=== PATIENT | female | born 1965 | race Hispanic/Latino ===

== ENCOUNTER 2018-01-23 20:30 | Outpatient (CLI) | payer MEDICARE, MEDICAID | END 2018-01-23 20:31 | disposition home or self-care (01) | LOC: SLEEPLAB 20:30 | PROVIDERS: ATTEND Internal Medicine Critical Care Medicine | DX: G47.33 Obstructive sleep apnea (adult) (pediatric) (principal); R53.83 Other fatigue | CPT/HCPCS: 95810 ==

== ENCOUNTER 2018-03-18 19:30 | Outpatient (CLI) | payer MEDICARE, MEDICAID | END 2018-03-18 19:31 | disposition home or self-care (01) | LOC: SLEEPLAB 19:30 | PROVIDERS: ATTEND Internal Medicine Critical Care Medicine | DX: G47.33 Obstructive sleep apnea (adult) (pediatric) (principal); G47.52 REM sleep behavior disorder | CPT/HCPCS: 95811 ==

== ENCOUNTER 2018-11-13 11:02 | Outpatient (CLI) | payer MEDICARE, MEDICAID | END 2018-11-13 11:03 | disposition home or self-care (01) | LOC: BICMAMMO 11:02 | PROVIDERS: ATTEND Family Medicine | DX: Z12.31 Encounter for screening mammogram for malignant neoplasm of breast (principal) | CPT/HCPCS: 77063; 77067 ==

== ENCOUNTER 2019-03-19 22:40 | Emergency (ER) | payer MEDICARE, MEDICAID ==
[2019-03-19 23:42] LABS: Bilirubin Negative (Negative); Blood, Urine Trace (Negative); Glucose, Urine (Dipstick) Negative (Negative); Leukocyte Small (Negative); Nitrite Negative (Negative); Protein, Urine (Dipstick) Negative (Neg-Trace); Specific Gravity, Urine 1.032 (1.002-1.036); Urobilinogen 0.2 mg/dL (0.2-1.0); pH, Urine 5.5 (5.0-9.0)
[2019-03-19 23:43] LABS: Clarity Hazy (Clear)
[2019-03-19 23:44] LABS: Bacteria/HPF Rare-Few HPF (None Seen); Pathc Cast-AUWi Flag 0.54 (0-2.49)
[2019-03-19 23:56] LABS: Hyaline Casts/LPF NONE SEEN LPF (0-3 Hyaline); Yeast-All Forms 1+ HPF (None Seen)
[2019-03-20 00:08] LABS: Pregnancy Test - Urine (BHCG) Negative (Negative)
[2019-03-20] MEDS ORDERED: cefTRIAXone\\ROCEPHIN 2 GM VIAL ONE (00:08)
[2019-03-20 00:09] LABS: Pregu Control Background? CLEAR/WHITE (CLR/WHITE); Pregu Control Bar Appear? YES (CONTROL BAR); Specific Gravity 1.032 (1.002-1.036)
[2019-03-20] MEDS ORDERED: Morphine 4 MG/ML VIAL ONE (00:34)
[2019-03-20 00:42] LABS: #Eosinphils 0.1 thou/uL (0.0-0.7); #Lymphocytes 2.1 thou/uL (1.20-3.40); #Monocytes 0.5 thou/uL (0.11-0.59); #Neutrophils 5.1 thou/uL (1.40-6.50); %Basophils 0.1 % (0.0-1.0); %Eosinophils 1.4 % (0.0-10.0); %Lymphocytes 27.4 % (21.0-51.0); %Monocytes 5.8 % (0.0-10.0); %Neutrophils 65.4 % (42.0-75.0); Hemoglobin 11.4 g/dL (12.0-16.0); Mean Corpuscular HGB CONC 32.7 g/dL (32.0-36.0); Mean Corpuscular Hemoglobin 28.6 pg (27.0-31.0); Mean Corpuscular Volume 87.4 fL (78.0-98.0); Mean Platelet Volume 6.4 fL (7.4-10.4); Platelet Count 216 thou/uL (130-400); RBC Distribution Width 13.8 % (11.5-14.5); Red Blood Cell (RBC) Count 3.98 mill/uL (4.20-5.40); White Blood Cell (WBC) Count 7.8 thou/uL (4.8-10.8)
[2019-03-20 01:02] LABS: ALT (SGPT) 13 U/L (8-55); AST (SGOT) 13 U/L (5-34); Albumin 3.5 g/dL (3.5-5.0); Alkaline Phosphatase 68 U/L (40-150); Anion Gap 12 mmol/L (10-20); BUN (Urea Nitrogen) 25 mg/dL (9.8-20.1); Bilirubin, Total 0.3 mg/dL (0.2-1.2); Calc. Creatinine Clearance 0 mL/min (70-130); Calcium 8.5 mg/dL (7.8-10.44); Carbon Dioxide 23 mmol/L (22-29); Chloride 107 mmol/L (98-107); Estimated GFR-MDRD Greater than 90; Globulin 2.2 g/dL (2.4-3.5); Glucose 103 mg/dL (70-105); Lipase 29 U/L (8-78); Potassium 3.9 mmol/L (3.5-5.1); Protein, Total 5.7 g/dL (6.0-8.3); Sodium 138 mmol/L (136-145)
== END 2019-03-20 01:25 | disposition home or self-care (01) ==
LOC: ERS 22:40
DX: N39.0 Urinary tract infection, site not specified (principal); F32.9 Major depressive disorder, single episode, unspecified; F41.9 Anxiety disorder, unspecified; M79.7 Fibromyalgia; G25.81 Restless legs syndrome; G47.30 Sleep apnea, unspecified; Z79.82 Long term (current) use of aspirin; Z79.899 Other long term (current) drug therapy
CPT/HCPCS: 36415; 80053; 81003; 81015; 81025; 83690; 85025; 96361; 96365; 96375; J0696; J2270

== ENCOUNTER 2019-05-26 20:33 | Emergency (ER) | payer MEDICARE, MEDICAID ==
[2019-05-26 20:55] LABS: #Basophils 0.1 thou/uL (0.0-0.2); #Eosinphils 0.1 thou/uL (0.0-0.7); #Lymphocytes 2.6 thou/uL (1.20-3.40); #Monocytes 0.5 thou/uL (0.11-0.59); %Basophils 0.6 % (0.0-1.0); %Eosinophils 0.6 % (0.0-10.0); %Lymphocytes 31.7 % (21.0-51.0); Hemoglobin 13.1 g/dL (12.0-16.0); Mean Corpuscular HGB CONC 32.7 g/dL (32.0-36.0); Mean Corpuscular Volume 85.9 fL (78.0-98.0); Platelet Count 327 thou/uL (130-400); RBC Distribution Width 13.2 % (11.5-14.5); Red Blood Cell (RBC) Count 4.69 mill/uL (4.20-5.40); White Blood Cell (WBC) Count 8.1 thou/uL (4.8-10.8)
[2019-05-26 21:11] LABS: ALT (SGPT) 15 U/L (8-55); AST (SGOT) 18 U/L (5-34); Albumin 4.3 g/dL (3.5-5.0); Alkaline Phosphatase 118 U/L (40-150); Anion Gap 13 mmol/L (10-20); BUN (Urea Nitrogen) 21 mg/dL (9.8-20.1); Bilirubin, Total 0.2 mg/dL (0.2-1.2); Calc. Creatinine Clearance 0 mL/min (70-130); Calcium 9.7 mg/dL (7.8-10.44); Carbon Dioxide 29 mmol/L (22-29); Chloride 101 mmol/L (98-107); Estimated GFR-MDRD 72; Globulin 3.4 g/dL (2.4-3.5); Glucose 100 mg/dL (70-105); Potassium 3.9 mmol/L (3.5-5.1); Protein, Total 7.7 g/dL (6.0-8.3); Sodium 139 mmol/L (136-145)
[2019-05-26] MEDS ORDERED: Metoclopramide HCl 10 MG/2 ML VIAL ONE (21:19)
[2019-05-26] MEDS ORDERED: diphenhydrAMINE 50 MG/ML VIAL ONE (21:19)
--- NOTE | 2019-05-26 22:16 | CT ---
CT HEAD WITHOUT CONTRAST: 05/26/2019 HISTORY: New onset of numbness in the left arm with headache and dizziness. COMPARISON: None. TECHNIQUE: Axial CT imaging at 5 mm intervals, from the vertex through the skull base, without contrast. FINDINGS: No intracranial hemorrhage, midline shift, mass effect, or ventricular enlargement. The imaged paran chantell sinuses and mastoid air cells are well aerated with no displaced calvarial fracture seen. IMPRESSION: No acute findings. POS: OFF
[2019-05-26] MEDS ORDERED: Diazepam 5 MG TAB ONE (22:19)
[2019-05-26 23:19] LABS: Carbamazepine-Tegretol 8.8 ug/mL (4.0-12.0)
== END 2019-05-26 23:15 | disposition home or self-care (01) ==
LOC: ERS 20:33
DX: R42 Dizziness and giddiness (principal); R51 Headache; Z86.73 Personal history of transient ischemic attack (TIA), and cerebral infarction without residual deficits; G47.30 Sleep apnea, unspecified; F41.9 Anxiety disorder, unspecified; F32.9 Major depressive disorder, single episode, unspecified; Z79.899 Other long term (current) drug therapy; Z79.82 Long term (current) use of aspirin
CPT/HCPCS: 36415; 70450; 80053; 80156; 84484; 85025; 93005; 96365; 96375; J1200; J2765

== ENCOUNTER 2019-06-01 09:29 | Outpatient (CLI) | payer MEDICARE, MEDICAID ==
--- NOTE | 2019-06-01 12:41 | CT ---
CT ABDOMEN AND PELVIS WITH CONTRAST: COMPARISON: 05/11/2012. HISTORY: Bloating and constipation for years. TECHNIQUE: Multiple contiguous axial images were obtained in a CT of the abdomen and pelvis with contrast. P.o. contrast was administered. Coronal reformats were performed. FINDINGS: The liver, gallbladder, kidneys, adrenal glands, spleen, and pancreas are unremarkable. No free air, free fluid, or stranding changes are seen in the abdomen or pelvis. The patient is status post hysterectomy. The large and small bowel are unremarkable. The appendix i s unremarkable. Atherosclerotic calcifications are seen in the aorta. No abdominal pelvic lymphaden opathy are seen. Degenerative changes are seen in the spine. The visualized inferior thorax and abdominal wall soft t issues are unremarkable. IMPRESSION: No evidence of acute intraabdominal/pelvic abnormality. POS: [facility]
[2019-06-01] MEDS ORDERED: ISOVUE-370 76%-LOCM 1 ML ONE (14:37)
== END 2019-06-01 09:30 | disposition home or self-care (01) ==
LOC: BICCT 09:29
PROVIDERS: ATTEND Physician Assistant Medical
DX: K59.00 Constipation, unspecified (principal); R14.0 Abdominal distension (gaseous); R14.2 Eructation
CPT/HCPCS: 74177

== ENCOUNTER 2019-11-24 09:05 | Outpatient (CLI) | payer MEDICARE, MEDICAID ==
--- NOTE | 2019-11-24 12:11 | MRI ---
MRI LUMBAR SPINE WITHOUT CONTRAST: INDICATION: Lumbar radiculopathy. Low back pain. COMPARISON: Comparison is made to prior MRI of the lumbar spine dated 12/08/2014. FINDINGS: The lumbar vertebrae maintain normal height and alignment. Degenerative disk changes are seen at all levels with loss of disk space throughout the lumbar spine. Degenerative end plate changes are seen throughout. The lumbar spine degenerative changes have progressed since 2015. Loss of disk space i s more pronounced today at L2-3 and L4-5 when compared to prior study. Degenerative disk changes at L5-S1 have also progressed since the prior study. Findings at each level are noted. L1-2: Mild disk bulge flattens the thecal sac. No central canal or foraminal stenosis. No signific ant change from prior exam. L2-3: Broad-based disk bulge flattens the thecal sac. Facet hypertrophy. There is posterior epidur al fat. These changes result in mild central canal stenosis. A disk extrusion at this level on the prior exam has regressed in the interim. At L3-4, mild diffuse disk bulge flattens the thecal sac. Moderate facet hypertrophy with posterior epidural fat. Mild to moderate central canal stenosis similar to the prior exam. At L4-5, posterior disk bulge flattens the thecal sac. Prominent facet and ligamentous hypertrophy w ith posterior epidural fat. These changes result in moderate to severe central canal stenosis. Left foraminal stenosis secondary to asymmetric bulge to the left and associated facet hypertrophy. At L5-S1, mild disk bulge. Facet hypertrophy. Mild central canal stenosis. Bilateral foraminal richard nosis at this level secondary to broad-based bulge extending into the foramina and the prominent face t hypertrophy. IMPRESSION: Central canal stenosis at several levels as detailed above. Findings are most severe at L4-5. POS: [facility]
== END 2019-11-24 09:06 | disposition home or self-care (01) ==
LOC: BICMRI 09:05
PROVIDERS: ATTEND Anesthesiology
DX: M54.16 Radiculopathy, lumbar region (principal); M54.5 Low back pain; M48.061 Spinal stenosis, lumbar region without neurogenic claudication; M48.07 Spinal stenosis, lumbosacral region
CPT/HCPCS: 72148

== ENCOUNTER → 2019-12-01 | Day surgery (SDC) | payer MEDICARE, MEDICAID ==
--- NOTE | 2019-12-04 19:40 | OP ---
DATE OF PROCEDURE: 12/01/2019 PROCEDURE PERFORMED: High-resolution esophageal motility study. PREOPERATIVE DIAGNOSES: Esophageal dysphagia and hiatal hernia with grade C reflux esophagitis and Rock ulcerations of the mucosa at the diaphragmatic pinch. Please note, the patient underwent esophageal dilation with an 18 mm Savary dilator with no change in the esophagus following the dilation. This is also part of a preoperative workup for possible fundoplication surgery. DESCRIPTION OF PROCEDURE: The manometry probe was placed by Mariella De La Torre registered nurse. The patient had 10 wet swallows evaluated. All 10 wet swallows showed a resting residual lower esophageal sphincter pressure to be around 30 mmHg. The lower esophageal sphincter relaxed completely with each wet swallow. Her esophageal motility showed peristaltic contractions with wave amplitudes up to the 80s and 90s mmHg range. She did have 3 or 4 of the wet swallows that failed; however, the remainder of the wet swallows showed normal peristaltic contractions with appropriate wave amplitudes. All the wet swallows had normal relaxation at the lower esophageal sphincter. IMPRESSION: 1. Overall normal esophageal motility. 2. It is noted that she did have failed swallows with 30% to 40%, however, still within the normal range. Melvin classification did suggest possible ineffective esophageal motility as the computer read 6 of the wet swallows to have failed, however, still she has multiple normal peristaltic contractions with appropriate relaxation for most of the wet swallows on actual review of the data and images. RECOMMENDATIONS: No contraindication to fundoplication is identified by this study; however, the findings of the failed swallows will need to be kept in mind. Job ID: [id number]
== END ==
LOC: ENDO/OP 07:31
PROVIDERS: ATTEND Internal Medicine Gastroenterology
DX: K21.9 Gastro-esophageal reflux disease without esophagitis (principal); K44.9 Diaphragmatic hernia without obstruction or gangrene; K59.00 Constipation, unspecified; F41.9 Anxiety disorder, unspecified; Z79.82 Long term (current) use of aspirin; Z79.899 Other long term (current) drug therapy
CPT/HCPCS: 91010

== ENCOUNTER 2019-12-21 09:53 | Outpatient (CLI) | payer OTHER | END 2019-12-21 09:54 | disposition home or self-care (01) | LOC: DTY/OP 09:53 | PROVIDERS: ATTEND Specialist | DX: Z01.818 Encounter for other preprocedural examination (principal); E66.01 Morbid (severe) obesity due to excess calories | CPT/HCPCS: 97802 ==

== ENCOUNTER 2020-04-25 08:07 | Outpatient (CLI) | payer MEDICARE, MEDICAID, OTHER ==
[2020-04-26 12:19] LABS: SARS-CoV-2 MS2 Positive; SARS-CoV-2 N Gene Negative; SARS-CoV-2 S Gene Negative; SARS-CoV-2 orf1ab Negative
== END 2020-04-25 08:08 | disposition home or self-care (01) ==
LOC: LABBT 08:07
PROVIDERS: ATTEND Specialist
DX: Z01.812 Encounter for preprocedural laboratory examination (principal); Z11.59 Encounter for screening for other viral diseases; K21.9 Gastro-esophageal reflux disease without esophagitis; E66.01 Morbid (severe) obesity due to excess calories
CPT/HCPCS: 87635; U0003

== ENCOUNTER 2020-04-25 12:00 | Inpatient (IN) | payer MEDICARE, MEDICAID ==
[2020-04-22 13:49] VITALS: BMI 41.1
[2020-04-28] MEDS ORDERED: Bupivacaine 0.25% HCL 30 ML VIAL ONE (06:28)
[2020-04-28] MEDS ORDERED: Lidocaine 1% w/Epinephrine 1:100K 20 ML VIAL ONE (06:28)
[2020-04-28] MEDS ORDERED: Acetaminophen 500 MG TAB ONE (06:34)
[2020-04-28] MEDS ORDERED: Ketorolac Tromethamine 30 MG/ML VIAL ONE (06:34)
[2020-04-28] MEDS ORDERED: Heparin 5,000 UNITS/ML VIAL ONE (06:35)
[2020-04-28] MEDS ORDERED: Fentanyl 100 MCG/2 ML VIAL ONE ×3 (07:02→12:15)
[2020-04-28] MEDS ORDERED: Midazolam HCl 2 mg/2 ml Vial ONE (07:02)
[2020-04-28] MEDS ORDERED: Scopolamine 1.5 mg/72 hour Patch ONE (07:17)
[2020-04-28] MEDS ORDERED: Famotidine/PF 20 mg/2ml Vial ONE (07:17)
[2020-04-28] MEDS ORDERED: SUGAMMADEX SODIUM 200 MG/2 ML VIAL ONE (11:09)
[2020-04-28] MEDS ORDERED: Dexamethasone 20 MG/5 ML VIAL ONE (11:54)
[2020-04-28] MEDS ORDERED: Rocuronium Bromide 10 MG/ML (10ML VIAL) ONE (11:54)
[2020-04-28] MEDS ORDERED: Ondansetron PF 4 MG/2 ML Vial ONE ×2 (11:54→12:17)
[2020-04-28] MEDS ORDERED: PROPOFOL 200 MG/20 ML VIAL ONE (11:54)
[2020-04-28] MEDS ORDERED: Glycopyrrolate 0.2 MG/ML 5 ML SYRINGE ONE (11:54)
[2020-04-28] MEDS ORDERED: EPHEDRINE 25 MG/5 ML SYRINGE ONE (11:54)
[2020-04-28] MEDS ORDERED: Dextrose 5% in Water 1,000 ML IV PRN (12:42)
[2020-04-28] MEDS ORDERED: Promethazine HCl 25 MG/ML VIAL IM PRN (12:42)
[2020-04-28] MEDS ORDERED: hydrALAZINE 20 MG/ML VIAL SLOW IVP PRN (12:42)
[2020-04-28] MEDS ORDERED: Morphine 4 MG/ML VIAL SLOW IVP PRN (12:42)
[2020-04-28] MEDS ORDERED: Ondansetron PF 4 MG/2 ML Vial IVP PRN (12:42)
[2020-04-28] MEDS ORDERED: diphenhydrAMINE 50 MG/ML VIAL IVP PRN (12:42)
[2020-04-28] MEDS ORDERED: Dextrose 50% Abboject 50 ML SYRINGE SLOW IVP PRN (12:42)
[2020-04-28] MEDS: Baclofen 10 MG TAB PO SCH ×2 (14:59→19:37)
[2020-04-28] MEDS: D5 1/2 NS w/20 mEq KCL 1,000 ML IV SCH ×2 (15:03→20:10)
[2020-04-28] MEDS: Hydrocodone-Acetamin 15 ML UDCUP PO PRN ×2 (16:56→21:31)
[2020-04-28] MEDS: Ketorolac Tromethamine 30 MG/ML VIAL IVP SCH ×2 (16:56→23:43)
--- NOTE | 2020-04-28 19:42 | OP ---
DATE OF PROCEDURE: 04/28/2020 PREOPERATIVE DIAGNOSES: Morbid obesity and 6 cm hiatal hernia. POSTOPERATIVE DIAGNOSES: Morbid obesity and 6 cm hiatal hernia. PROCEDURES PERFORMED: Laparoscopic Anastacio-en-Y gastric bypass and paraesophageal hiatal hernia repair. SENIOR FUND ACCOUNTANT: Eugenia Staley MD ANESTHESIA: General endotracheal. INDICATIONS: The patient is a 54-year-old female. She has a BMI of between 41 and 42. She had presented with fairly severe gastroesophageal reflux disease. I recommended gastric bypass surgery with hiatal hernia repair to treat both problems. She is taken to the operating room at this time for this purpose. DESCRIPTION OF OPERATION: Informed consent was obtained, the patient was taken to the operating room, where general endotracheal anesthesia was obtained with the patient in supine position. Abdomen was prepped with ChloraPrep and draped in sterile fashion. Local anesthetic was infiltrated using a mixture of 1% lidocaine with epinephrine and 0.25% Marcaine. A 5 mm supraumbilical incision was created and Veress needle passed this incision. Pneumoperitoneum established with carbon dioxide up to pressure of 15 mmHg. A 5 mm trocar port was passed through the same incision. Laparoscopic camera was passed this port. Under direct vision, four additional ports were placed including bilateral subcostal 5 mm ports and a left paramedian 15 mm port and a right paramedian 12 mm port. Attention was first turned inferiorly. There were omental adhesions to the anterior abdominal wall inferiorly and these were lysed in hopes of being able to retract the omentum superiorly. As dissection was carried inferiorly, it was recognized that the omentum was fairly densely adherent down within the pelvis, not only to the pelvic structures, but also to the posterior loops of bowel. I decided that there was excessive adhesions and that the benefit from being able to retract the omentum was not worth the dissection. During the course of mobilization, there were also some small bowel loops that were adherent to the anterior abdominal wall. During the course of dissection, a small serosal defect was created in one of these loops. There was no enterotomy. The serosal defect was repaired with a single interrupted suture of 3-0 silk. Attention was turned to the upper abdomen. I identified the left lateral aspect of the omentum. I was able to begin dissecting this off the transverse colon in a left to right fashion. There were some adhesions between the omentum and the lateral abdominal wall in the left upper abdomen and some of these adhesions were lysed as well. The dissection of the omentum off the transverse colon was continued until I reached the area of the approximately the falciform ligament. The transverse colon was then elevated and the ligament of Treitz was identified. A 50 cm distally, I transected the small bowel with a single firing of the white load of the Santa Claus stapler. The distal segment of small bowel was devascularized for about 5 cm. I then traced the bowel 100 cm distally and at that point, created an anastomosis between the biliary limb of the intestine and the Anastacio limb of the intestine with a single firing of the 60 mm white load stapler. The common enterotomy was closed with two firings of the same stapler. There was more oozing along the staple line, that this typical and this was controlled with electrocautery. The mesenteric defect was closed with two [id number] sutures of 3-0 Vicryl. The patient was then placed into fairly steep reverse Trendelenburg. A Zac's arm attached to the Johan retractor was used to retract the left lobe of the liver. She had no evidence of fatty liver change. Attention was turned to the hiatal hernia. She had an obvious hiatal hernia with a significant amount of stomach present within the mediastinum. I began at the pars flaccida and dissected up to identify the right alex. I then carried the peritoneal dissection anteriorly along the peritoneal portion of the hiatus. I was able to identify the posterior aspect of the esophagus, but could not dissect over to the other alex. Attention was then turned to the patient's left side. I took down the superior aspect of the short gastric vessels in order to be able to visualize and dissect the left alex. The left alex was fully dissected and dissection was also carried up along the esophagus into the mediastinum for about 4 cm. I then was able to dissect the retroesophageal window and the space was controlled with a Gogo drain. After this was placed, I was able to fully dissect both of the crura. The hiatal hernia was repaired with 2 interrupted sutures of 0 Ethibond placed using [place] pledgets. The sutures were secured with a tie knot device. When inspected, the hiatus appeared to be appropriately snug around the esophagus. Bougie was not placed and I felt comfortable with the amount of laxity around the esophagus. Attention was then turned to the gastric pouch construction. The lesser curvature was dissected. About 5 cm distal to the gastroesophageal junction. A single firing of the blue load of the Santa Claus stapler was made in a transverse fashion across the stomach. A gastrotomy was created in the lower segment of the stomach and through this, the anvil of a 25 mm EEA stapler was passed into the upper pouch and brought out just anterior to the staple line using the 5 mm band passer technique. The gastrotomy was then closed with two firings of the blue load of the Santa Claus stapler. The gastric pouch was completed with two vertical firings of the blue load of the gastric pouch up towards the angle of His. I resected the upper portion of the bypassed portion of the stomach as it had been somewhat devascularized by taking down the short gastric vessels. This segment did not appear ischemic, but I felt it was a risk for possible ischemic change. The segment of the stomach was removed and submitted as a pathologic specimen. The spike from the anvil was removed. Attention was turned to the devascularized segment of the Anastacio limb, which was brought up into the upper abdomen. An enterotomy was created and a 25 mm EEA stapler was advanced into this. The spike was advanced through the antimesenteric segment of the small bowel proximal to the mesenteric split. The stapler and the anvil were mated, approximated, and anastomosis was created by firing the stapler. Staple was removed and the donuts were inspected and found to be intact. The enterotomy in the devascularized segment of the small bowel removed with a final firing of the white load of the stapler. The gastrojejunostomy was buttressed with 3 interrupted sutures of 3-0 Vicryl. The nasogastric tube was advanced through the anastomosis and used to test the anastomosis for an air leak while it was under water. There was no evidence of air leak. All of the irrigant was aspirated. The jejunojejunostomy was inspected one final time. There was found to be some persistent oozing along one of the staple lines and this was controlled again with electrocautery with complete cessation of any bleeding. All irrigant was again aspirated. The Johan retractor was removed. All ports and instruments were removed under direct vision. The fascial defect at the 15 mm port site was closed with 0 Vicryl suture using a GraNee needle in a [id number] fashion. Additional local anesthetic was infiltrated in each port site. Skin edges approximated with 4-0 Monocryl subcuticular suture. Dermabond was placed externally. There were no complications. The patient tolerated the procedure well and was taken to recovery room in stable condition. Job ID: [id number]
[2020-04-28] MEDS ORDERED: Enoxaparin Sodium 40 MG/0.4 ML SYRINGE SC SCH (21:00)
[2020-04-29] MEDS: D5 1/2 NS w/20 mEq KCL 1,000 ML IV SCH (02:41)
[2020-04-29] MEDS: Hydrocodone-Acetamin 15 ML UDCUP PO PRN ×2 (04:12→09:13)
[2020-04-29] MEDS: Ketorolac Tromethamine 30 MG/ML VIAL IVP SCH (05:17)
[2020-04-29 05:20] LABS: #Lymphocytes 1.2 thou/uL (1.20-3.40); #Monocytes 0.4 thou/uL (0.11-0.59); #Neutrophils 6.7 thou/uL (1.40-6.50); %Basophils 0.1 % (0.0-1.0); %Eosinophils 0.1 % (0.0-10.0); %Lymphocytes 14.4 % (21.0-51.0); %Monocytes 5.2 % (0.0-10.0); %Neutrophils 80.3 % (42.0-75.0); Hemoglobin 9.4 g/dL (12.0-16.0); Mean Corpuscular HGB CONC 31.7 g/dL (32.0-36.0); Mean Corpuscular Hemoglobin 27.5 pg (27.0-31.0); Mean Corpuscular Volume 86.7 fL (78.0-98.0); Mean Platelet Volume 6.8 fL (7.4-10.4); Platelet Count 285 thou/uL (130-400); Red Blood Cell (RBC) Count 3.43 mill/uL (4.20-5.40); White Blood Cell (WBC) Count 8.4 thou/uL (4.8-10.8)
[2020-04-29 05:41] LABS: Anion Gap 10 mmol/L (10-20); BUN (Urea Nitrogen) 9 mg/dL (9.8-20.1); Calc. Creatinine Clearance 146 mL/min (70-130); Calcium 8.5 mg/dL (7.8-10.44); Carbon Dioxide 26 mmol/L (22-29); Chloride 106 mmol/L (98-107); Estimated GFR-MDRD 85; Glucose 126 mg/dL (70-105); Potassium 4.1 mmol/L (3.5-5.1); Sodium 138 mmol/L (136-145)
[2020-04-29 07:41] VITALS: BP 94/61; TEMP 98.3
[2020-04-29] MEDS ORDERED: Pantoprazole 40 MG VIAL IVP SCH (09:00)
[2020-04-29] MEDS ORDERED: DULoxetine 30 MG CAP PO SCH (09:00)
[2020-04-29] MEDS: Baclofen 10 MG TAB PO SCH (09:15)
== END 2020-04-29 12:45 | disposition home or self-care (01) | DRG 621 ==
LOC: SURG A 04-28 06:15
PROVIDERS: ADMIT Specialist; ATTEND Specialist
PROC: 0D164ZA Bypass Stomach to Jejunum, Percutaneous Endoscopic Approach (ICD-10-PCS; principal; 2020-04-28)
PROC: 0BQT4ZZ Repair Diaphragm, Percutaneous Endoscopic Approach (ICD-10-PCS; 2020-04-28)
DX: E66.01 Morbid (severe) obesity due to excess calories (principal); K21.9 Gastro-esophageal reflux disease without esophagitis; G47.30 Sleep apnea, unspecified; F41.9 Anxiety disorder, unspecified; Z90.710 Acquired absence of both cervix and uterus; Z68.41 Body mass index [BMI] 40.0-44.9, adult; K44.9 Diaphragmatic hernia without obstruction or gangrene
CPT/HCPCS: 36415; 80048; 85025; 87635; C9113; J0694; J1100; J1644; J1650; J1885; J2250; J2270; J2405; J2704; J3010; J3480; S0020; S0028; U0003

== ENCOUNTER 2020-05-10 00:16 | Emergency (ER) | payer MEDICARE, MEDICAID ==
[2020-05-10 00:43] LABS: #Eosinphils 0.1 thou/uL (0.0-0.7); #Lymphocytes 1.8 thou/uL (1.20-3.40); #Monocytes 0.3 thou/uL (0.11-0.59); #Neutrophils 2.3 thou/uL (1.40-6.50); %Basophils 0.9 % (0.0-1.0); %Eosinophils 2.7 % (0.0-10.0); %Lymphocytes 39.3 % (21.0-51.0); %Monocytes 6.3 % (0.0-10.0); %Neutrophils 50.8 % (42.0-75.0); Hemoglobin 9.4 g/dL (12.0-16.0); Mean Corpuscular HGB CONC 31.8 g/dL (32.0-36.0); Mean Corpuscular Hemoglobin 26.9 pg (27.0-31.0); Mean Corpuscular Volume 84.6 fL (78.0-98.0); Mean Platelet Volume 6.4 fL (7.4-10.4); Platelet Count 371 thou/uL (130-400); RBC Distribution Width 14.4 % (11.5-14.5); Red Blood Cell (RBC) Count 3.49 mill/uL (4.20-5.40); White Blood Cell (WBC) Count 4.6 thou/uL (4.8-10.8)
[2020-05-10 01:04] LABS: ALT (SGPT) 30 U/L (8-55); AST (SGOT) 22 U/L (5-34); Albumin 3.8 g/dL (3.5-5.0); Alkaline Phosphatase 56 U/L (40-110); Anion Gap 12 mmol/L (10-20); BUN (Urea Nitrogen) 21 mg/dL (9.8-20.1); Bilirubin, Total 0.5 mg/dL (0.2-1.2); Calc. Creatinine Clearance 0 mL/min (70-130); Calcium 8.8 mg/dL (7.8-10.44); Carbon Dioxide 23 mmol/L (22-29); Chloride 107 mmol/L (98-107); Estimated GFR-MDRD 86; Globulin 2.5 g/dL (2.4-3.5); Glucose 109 mg/dL (70-105); Potassium 4.2 mmol/L (3.5-5.1); Protein, Total 6.3 g/dL (6.0-8.3); Sodium 138 mmol/L (136-145)
[2020-05-10] MEDS ORDERED: Pramipexole Di-HCl 1 MG TAB PO SCH (02:15)
[2020-05-10 05:35] LABS: #Basophils 0.1 thou/uL (0.0-0.2); #Eosinphils 0.1 thou/uL (0.0-0.7); #Lymphocytes 1.7 thou/uL (1.20-3.40); #Monocytes 0.3 thou/uL (0.11-0.59); #Neutrophils 2.3 thou/uL (1.40-6.50); %Basophils 1.4 % (0.0-1.0); %Eosinophils 2.3 % (0.0-10.0); %Lymphocytes 37.5 % (21.0-51.0); %Neutrophils 52.8 % (42.0-75.0); Hemoglobin 8.8 g/dL (12.0-16.0); Mean Corpuscular HGB CONC 32.4 g/dL (32.0-36.0); Mean Corpuscular Hemoglobin 27.3 pg (27.0-31.0); Mean Corpuscular Volume 84.2 fL (78.0-98.0); Mean Platelet Volume 6.7 fL (7.4-10.4); Platelet Count 393 thou/uL (130-400); RBC Distribution Width 14.6 % (11.5-14.5); Red Blood Cell (RBC) Count 3.24 mill/uL (4.20-5.40); White Blood Cell (WBC) Count 4.4 thou/uL (4.8-10.8)
== END 2020-05-10 05:43 | disposition home or self-care (01) ==
LOC: ERS 00:16
DX: K92.1 Melena (principal); G47.30 Sleep apnea, unspecified; F41.9 Anxiety disorder, unspecified; F32.9 Major depressive disorder, single episode, unspecified; M79.7 Fibromyalgia; Z79.899 Other long term (current) drug therapy; Z79.82 Long term (current) use of aspirin; Z86.73 Personal history of transient ischemic attack (TIA), and cerebral infarction without residual deficits
CPT/HCPCS: 36415; 80053; 82274; 85025

== ENCOUNTER 2020-05-10 21:23 | Inpatient (IN) | payer MEDICARE, MEDICAID ==
[~2020-05-10 21:23] MED LIST: Iopamidol-370 76% 500 ML 1 ML ONE
[2020-05-10 22:01] LABS: #Eosinphils 0.1 thou/uL (0.0-0.7); #Lymphocytes 1.7 thou/uL (1.20-3.40); #Monocytes 0.3 thou/uL (0.11-0.59); #Neutrophils 2.7 thou/uL (1.40-6.50); %Basophils 0.3 % (0.0-1.0); %Eosinophils 2.3 % (0.0-10.0); %Lymphocytes 35.8 % (21.0-51.0); %Monocytes 5.8 % (0.0-10.0); %Neutrophils 55.8 % (42.0-75.0); Hemoglobin 7.6 g/dL (12.0-16.0); Mean Corpuscular HGB CONC 31.8 g/dL (32.0-36.0); Mean Corpuscular Hemoglobin 27.3 pg (27.0-31.0); Mean Corpuscular Volume 85.9 fL (78.0-98.0); Mean Platelet Volume 6.4 fL (7.4-10.4); Platelet Count 365 thou/uL (130-400); RBC Distribution Width 14.5 % (11.5-14.5); Red Blood Cell (RBC) Count 2.79 mill/uL (4.20-5.40); White Blood Cell (WBC) Count 4.8 thou/uL (4.8-10.8)
[2020-05-10 22:18] LABS: ALT (SGPT) 28 U/L (8-55); AST (SGOT) 23 U/L (5-34); Albumin 3.6 g/dL (3.5-5.0); Alkaline Phosphatase 52 U/L (40-110); Anion Gap 12 mmol/L (10-20); BUN (Urea Nitrogen) 19 mg/dL (9.8-20.1); Bilirubin, Total 0.4 mg/dL (0.2-1.2); Calc. Creatinine Clearance 0 mL/min (70-130); Calcium 8.6 mg/dL (7.8-10.44); Carbon Dioxide 23 mmol/L (22-29); Chloride 109 mmol/L (98-107); Estimated GFR-MDRD 88; Globulin 2.3 g/dL (2.4-3.5); Glucose 106 mg/dL (70-105); Lipase 71 U/L (8-78); Potassium 3.7 mmol/L (3.5-5.1); Protein, Total 5.9 g/dL (6.0-8.3); Sodium 140 mmol/L (136-145)
[2020-05-10] MEDS ORDERED: Pantoprazole 40 MG VIAL ONE (23:45)
[2020-05-11 00:57] VITALS: BMI 39.3
[2020-05-11] MEDS ORDERED: Ondansetron ODT 4 MG TAB SL PRN (00:58)
[2020-05-11] MEDS ORDERED: Ondansetron PF 4 MG/2 ML Vial IVP PRN (00:58)
[2020-05-11] MEDS ORDERED: Sodium Chloride 0.9% (PF) 10 ML VIAL FS PRN (00:58)
[2020-05-11] MEDS: Dextrose 5%-Lactated Ringers 1,000 ML IV SCH ×3 (02:13→19:48)
--- NOTE | 2020-05-11 08:57 | CT ---
CT ABDOMEN AND PELVIS WITH IV CONTRAST: Oral contrast was also given. INDICATION: Nausea and vomiting. Abdominal pain. COMPARISON: Comparison is made to CT abdomen and pelvis 06/01/2019. FINDINGS: Lung bases are clear. Liver, spleen, and pancreas unremarkable. Postoperative changes involving the stomach with evidence of gastric bypass procedure. Adrenal glands and kidneys unremarkable. The small bowel loops are normal caliber. Colon unremarkable. Aorta normal caliber. Images through the pelvis show evidence of hysterectomy. There is a new irregularly shaped soft tiss ue mass density in the pelvis today when compared to the CT of 06/01/2019. This measures approximately 4.0 cm diameter. It could be ovarian in origin if ovaries are remaining. It abuts small bowel loop s and could have small bowel origin. It does not arise from the sigmoid colon. No free fluid. Aorta normal caliber. IMPRESSION: There is a new soft tissue mass in the pelvis today when compared to the exam of 06/01/2019. Potential origin includes ovarian or small bowel. Recommend followup. Laparoscopy may be necessary for diagn osis. POS: [facility]
[2020-05-11] MEDS ORDERED: Pantoprazole 40 MG VIAL IVP SCH (09:00)
[2020-05-11] MEDS ORDERED: PROPOFOL 200 MG/20 ML VIAL ONE (11:15)
[2020-05-11] MEDS ORDERED: Pramipexole Di-HCl 0.25 MG TAB PO SCH (12:45)
[2020-05-11 14:32] LABS: #Eosinphils 0.1 thou/uL (0.0-0.7); #Lymphocytes 1.5 thou/uL (1.20-3.40); #Monocytes 0.3 thou/uL (0.11-0.59); #Neutrophils 2.4 thou/uL (1.40-6.50); %Basophils 0.7 % (0.0-1.0); %Eosinophils 2.5 % (0.0-10.0); %Lymphocytes 34.3 % (21.0-51.0); %Neutrophils 56.5 % (42.0-75.0); Hemoglobin 6.9 g/dL (12.0-16.0); Mean Corpuscular HGB CONC 30.9 g/dL (32.0-36.0); Mean Corpuscular Hemoglobin 26.3 pg (27.0-31.0); Mean Corpuscular Volume 85.1 fL (78.0-98.0); Mean Platelet Volume 6.2 fL (7.4-10.4); Platelet Count 306 thou/uL (130-400); RBC Distribution Width 14.3 % (11.5-14.5); Red Blood Cell (RBC) Count 2.63 mill/uL (4.20-5.40); White Blood Cell (WBC) Count 4.3 thou/uL (4.8-10.8)
[2020-05-11 14:51] LABS: Anion Gap 10 mmol/L (10-20); BUN (Urea Nitrogen) 11 mg/dL (9.8-20.1); Calc. Creatinine Clearance 154 mL/min (70-130); Calcium 8.3 mg/dL (7.8-10.44); Carbon Dioxide 23 mmol/L (22-29); Chloride 109 mmol/L (98-107); Estimated GFR-MDRD Greater than 90; Glucose 108 mg/dL (70-105); Potassium 3.4 mmol/L (3.5-5.1); Sodium 139 mmol/L (136-145)
[2020-05-11] MEDS ORDERED: Ketamine 50 MG/ML (10ML VIAL) ONE (16:17)
[2020-05-11] MEDS ORDERED: Midazolam HCl 2 mg/2 ml Vial ONE (16:17)
[2020-05-11] MEDS ORDERED: Ondansetron HCl/PF 4 MG/2 ML Vial IVP PRN (17:03)
--- NOTE | 2020-05-11 19:38 | CON ---
DATE OF CONSULTATION: 05/11/2020 REQUESTING PHYSICIAN: Thierno Nj MD REASON FOR CONSULTATION: GI bleeding. HISTORY OF PRESENT ILLNESS: Evelina Leo is a very pleasant 54-year-old woman, seen in the GI outpatient setting by my colleague, Dr. Manny Choi. The patient has a history of obesity, fibromyalgia, sleep apnea, and chronic reflux. Dr. Choi evaluated her on 03/22/2020 for chronic anemia. On that date, EGD showed LA grade B reflux esophagitis, then a 4 cm hiatal hernia with a few small erosions in the gastric body. Esophageal biopsies were bland. On colonoscopy, she had three tiny polyps removed as well as multiple diverticula throughout the colon. There were no bleeding lesions identified. He recommended repeat colonoscopy at a 5-year interval. She has been on acid suppression since then. At one point, capsule endoscopy was entertained for further workup of the anemia, but there was some issue getting insurance approval for this. A couple of weeks ago, the patient underwent Anastacio-en-Y gastric bypass with Dr. Nj. This was an uncomplicated procedure. The patient reports she had been doing very well since then. She had gotten iron infusion and hemoglobin had come up to 12.4, but just postoperatively, hemoglobin had gone back down more toward her baseline at 9.4. A couple of days ago, she had the acute onset of melena, stools were jet black and very runny. She has had multiple episodes of melena over the past couple of days since then, including four episodes today. This is jet black blood, not bright red. There is really minimal associated abdominal discomfort. There is no nausea or vomiting. Upon presentation today, hemoglobin had gone down to 7.6, and on recheck had declined further to 6.9. She is hemodynamically stable. She has received a dose of IV Protonix. We are consulted due to concern for upper GI bleeding. She is going to get 1 unit of blood this afternoon. REVIEW OF SYSTEMS: Full review of systems including constitutional, head, eyes, ears, nose, throat, GI, , cardiovascular, respiratory, musculoskeletal, and neurologic systems is negative except as noted in the HPI. PAST MEDICAL HISTORY: Cardiac murmur, restless legs syndrome, fibromyalgia, sleep apnea, obesity, rectal prolapse, GERD, reflux esophagitis, rotator cuff repair, hysterectomy, dermoid cyst removed from right ovary, anxiety, and depression. ALLERGIES: BENADRYL. MEDICATIONS: 1. Aspirin 325 mg daily. 2. Baclofen 10 mg 3 times daily. 3. Plavix 75 mg daily. 4. Pramipexole 0.5 mg daily. 5. Gabapentin 1200 mg twice daily. SOCIAL HISTORY: Nonsmoker. No drug or alcohol abuse. Lives at home alone. FAMILY HISTORY: A paternal uncle and paternal aunt had colon cancer. PHYSICAL EXAMINATION: VITAL SIGNS: Temperature 98.0, pulse 89, blood pressure 97/63, and 96% oxygen saturation on room air. GENERAL: A 54-year-old woman, lying in bed comfortably, in no distress. SKIN: She is a bit pale. No jaundice. No rashes were palpable. HEENT: Eyes, no scleral icterus. Extraocular movements intact. ENT, mucous membranes moist. No oral lesions. LYMPH: No submandibular or supraclavicular lymphadenopathy. THYROID: Nontender to palpation. HEART: Regular rate and rhythm. LUNGS: Clear to auscultation bilaterally. ABDOMEN: Obese. Bowel sounds present. Soft and nontender to palpation throughout. EXTREMITIES: No peripheral edema. VESSELS: Radial pulses 2+ bilaterally. NEURO: Cranial nerves 2 through 12 intact bilaterally. No focal deficits. LABORATORY STUDIES: Hemoglobin 7.6 last night and down to 6.9 today, WBC 4.3, and platelets 306. Sodium 139, potassium 3.4, BUN 11, creatinine 0.65, total bilirubin 0.4, alkaline phosphatase 52, AST 23, ALT 28, and lipase 71. IMAGING STUDIES: CT of the abdomen and pelvis from admission yesterday shows normal appearing liver spleen and pancreas. Postoperative changes involving the stomach. Normal small bowel and colon. There is a soft tissue mass density in the pelvis measuring 4 cm thought to be ovarian versus small-bowel in origin. ASSESSMENT AND PLAN: 1. Melena, acute over the past 2 days. 2. Acute on chronic blood-loss anemia. She is down about 2.5 points from baseline, with hemoglobin going from 9.4 to 6.9 over the past day. 3. Recent Anastacio-en-Y gastric bypass surgery. Her surgery was otherwise uncomplicated. She does have a baseline anemia, but no prior history of overt bleeding like this. I discussed the case with Dr. Nj this as well as the patient, endoscopic investigation is warranted. We are going to proceed on a more emergent basis this afternoon. She is receiving pantoprazole 40 mg IV twice daily. In the meantime, she is otherwise hemodynamically stable. We are going to try to use the colonoscope in an attempt to examine as far down the small bowel as we can, hopefully we will be able to get to the distal anastomosis. Agree with transfusion. Continue to monitor closely. 4. Abnormal CT of the pelvis. There is a new soft tissue mass in the pelvis measuring 4 cm, felt to represent ovarian versus small bowel origin, this will probably need close imaging versus laparoscopy followup, obviously depending on results of endoscopy today. Job ID: [id number]
[2020-05-11] MEDS: Pramipexole Di-HCl 0.25 MG TAB PO SCH (19:47)
[2020-05-11] MEDS: Pantoprazole 40 MG VIAL IVP SCH (19:48)
--- NOTE | 2020-05-11 20:06 | HP ---
ADMISSION DIAGNOSIS: Rectal bleeding. HISTORY OF PRESENT ILLNESS: The patient is a 54-year-old female. She is status post laparoscopic Anastacio-en-Y gastric bypass and paraesophageal hiatal hernia repair on April 28. She had approximately 6 cm hiatal hernia at the time of her surgery. She was discharged the day after surgery. She was tolerating her diet and had an uneventful progression until 05/09/2020. At that time, she noted that she began to have blood per rectum. She presented to the emergency room at about midnight on the . She was evaluated and her hemoglobin was found to be 9.4, which was the same as it had been on postoperative day number 1 (April 29). She was observed for a few hours and subsequently discharge home. Yesterday, she continued to have blood per rectum. She had discontinued her aspirin and Plavix. She returned to the emergency room yesterday evening and her hemoglobin had dropped down to 7.6. She was also a little tachycardic with a heart rate just over 100. She was given IV fluid and admitted to my service. Unfortunately, followup laboratory studies were not ordered. The patient has no complaints other than noting that she continues to pass blood per rectum and states that she had another bloody bowel movement within the last hour or two. She denies any unusual abdominal symptoms otherwise. She notes her abdominal discomfort is resolving appropriately. She has had no nausea or vomiting. She has tolerated a clear liquid diet. PAST MEDICAL HISTORY: Significant for history of some form of a stroke, for which she takes Plavix. She also has restless legs syndrome, recent hiatal hernia with severe reflux, and obesity. PAST SURGICAL HISTORY: Ovarian cyst removal, rectocele surgery, hysterectomy, carpal tunnel surgery bilaterally, thumb surgery, and endovenous ablation, rotator cuff surgery. MEDICATIONS: 1. Mirapex. 2. Dexilant. 3. Plavix. 4. Lasix. 5. Baclofen. 6. Duloxetine. 7. Carbamazepine. ALLERGIES: NO KNOWN DRUG ALLERGIES. PERSONAL AND SOCIAL HISTORY: She does not smoke. She does not drink alcohol. REVIEW OF SYSTEMS: Otherwise unremarkable. FAMILY HISTORY: Noncontributory. PHYSICAL EXAMINATION: VITAL SIGNS: She is afebrile. Pulse is 78 to 89 and blood pressure is 97/63. LUNGS: Clear to auscultation. CARDIAC: Regular rate and rhythm. ABDOMEN: Soft, nontender, and nondistended. Incisions are healing nicely. Bowel sounds are present and normoactive. EXTREMITIES: Unremarkable. LABORATORY DATA: As mentioned, her hemoglobin at 9:30 last night was 7.6. Repeat labs are being ordered currently. Chemistries are unremarkable. X-rays and CT scan were obtained yesterday in the emergency room revealing no significant intraabdominal abnormality. There is a question regarding a possible 4 cm mass in the right upper pelvis. The etiology was not apparent, but the small bowel and ovarian etiologies were suggested as possibility. ASSESSMENT AND PLAN: The patient is currently stable, but she continues to have rectal bleeding. I have consulted Gastroenterology for evaluation and treatment of this. As soon as she is felt to be appropriate from an emergency/Coronavirus aspect, then the plan is to proceed with endoscopy. She is being given pantoprazole here in the hospital and her Plavix is still held. It is noted that she was quite anemic back in November, at which time, she was 8.4 prior to being given a few courses of intravenous iron, which drove her hemoglobin up to 12.4 in February of this year. She may have some other source of blood loss. It is not apparent. We will continue to evaluate and treat her until we can figure out what is causing the bleeding and appropriately treated. I have discussed this case with both Dr. Choi and Dr. Sosa. Job ID: [id number]
[2020-05-11] MEDS ORDERED: Acetaminophen 325 MG TAB PO PRN (22:36)
--- NOTE | 2020-05-11 22:42 | OP ---
DATE OF PROCEDURE: 05/11/2020 FIELD ARTILLERY BASIC SURGEON: None. PROCEDURES: Esophagogastroduodenoscopy with push small bowel enteroscopy. INDICATIONS: 1. Melena. 2. Acute on chronic blood-loss anemia. 3. History of recent Anastacio-en-Y gastric bypass surgery. MEDICATIONS: See Anesthesia record. FINDINGS: After discussion of the risks, benefits, and alternatives of the procedure, informed consent was obtained and witnessed. Pre-endoscopic cardiopulmonary examination was satisfactory. Time-out was performed before sedation was achieved. Sedation was achieved with Anesthesia assistance in the endoscopy unit. A Pentax adult colonoscope was inserted into the mouth and passed through the cricopharyngeus under direct visualization. The esophageal mucosa appeared normal throughout with a normal-appearing Z-line at 33 cm from the incisors. The endoscope was then advanced into the gastric pouch. The gastric pouch measures about 7 cm in length. The mucosa in the gastric pouch appears normal at 40 cm from the incisors, the gastrojejunal anastomosis is visualized. There is some circumferential friability with shallow erosion and some very mild oozing from this area. However, there is no evidence of significant hemorrhage. No visible vessel. No pooling of blood anywhere. The colonoscope was advanced beyond this anastomosis and down the efferent jejunal limb. I was able to advance to a distance of 160 cm, but I was not able to reach the distal anastomosis. The small bowel mucosa appeared completely normal to the extent examined. There was no old blood or active bleeding or any bleeding lesions visualized. The colonoscope was then completely withdrawn and the patient allowed to recover. The patient tolerated the procedure well. There were no immediate postprocedure complications. IMPRESSION: 1. Circumferential friability with she has some shallow erosions at the gastrojejunal anastomosis, with mild oozing, but no significant hemorrhage. 2. Otherwise normal post Anastacio-en-Y gastric bypass exam, examined to 160 cm. The distal anastomosis was not reached. RECOMMENDATION: 1. Clear liquid diet for tonight. 2. Trend the H and H. 3. Daily PPI. 4. GI will follow along. Job ID: [id number]
[2020-05-12] MEDS: Dextrose 5%-Lactated Ringers 1,000 ML IV SCH ×4 (02:41→23:13)
[2020-05-12] MEDS: Pramipexole Di-HCl 0.25 MG TAB PO SCH (05:38)
[2020-05-12 05:59] LABS: Anion Gap 12 mmol/L (10-20); BUN (Urea Nitrogen) 6 mg/dL (9.8-20.1); Calc. Creatinine Clearance 149 mL/min (70-130); Calcium 8.7 mg/dL (7.8-10.44); Carbon Dioxide 23 mmol/L (22-29); Chloride 110 mmol/L (98-107); Estimated GFR-MDRD Greater than 90; Glucose 106 mg/dL (70-105); Potassium 3.6 mmol/L (3.5-5.1); Sodium 141 mmol/L (136-145)
[2020-05-12 06:12] LABS: Band 2 % (5-11); Eosinophils 1 % (0-10); Hemoglobin 8.9 g/dL (12.0-16.0); Hypochromia SLIGHT = 6-15 cells (100X) (0-5/hpf); Lymphocytes 26 % (21-51); MDiff Complete? YES; Mean Corpuscular HGB CONC 32.2 g/dL (32.0-36.0); Mean Corpuscular Hemoglobin 27.8 pg (27.0-31.0); Mean Corpuscular Volume 86.4 fL (78.0-98.0); Mean Platelet Volume 6.7 fL (7.4-10.4); Monocytes 10 % (0-10); Neutrophil 61 % (42-75); Platelet Count 357 thou/uL (130-400); Platelet Morphology Comment Appears Adequate; RBC Distribution Width 14.2 % (11.5-14.5); Red Blood Cell (RBC) Count 3.21 mill/uL (4.20-5.40); White Blood Cell (WBC) Count 3.8 thou/uL (4.8-10.8)
[2020-05-12] MEDS: Pantoprazole 40 MG VIAL IVP SCH ×2 (08:28→20:42)
[2020-05-12] MEDS ORDERED: Acetaminophen 650 MG/20.3 ML UDCUP PO PRN (10:34)
[2020-05-12] MEDS ORDERED: Hydrocodone-Acetamin 15 ML UDCUP PO PRN (10:34)
[2020-05-12 13:28] LABS: SARS-CoV-2 MS2 Positive; SARS-CoV-2 N Gene Negative; SARS-CoV-2 S Gene Negative; SARS-CoV-2 orf1ab Negative
--- NOTE | 2020-05-12 14:30 | PRG ---
DATE OF SERVICE: SUBJECTIVE: Evelina Leo is seen today for Dr. Nj. The patient is doing well. She reports clots of blood with her bowel movement. However, nurses have not be able to view this and confirm it. I have asked the patient to save the next bowel movement for the nurses to see. OBJECTIVE: VITAL SIGNS: Temperature 98 degrees, pulse 81, blood pressure 111/73. LUNGS: Clear to auscultation. CARDIAC: Regular rate and rhythm. No murmur or gallop. ABDOMEN: Soft and nontender. Surgical laparoscopic port site wounds are well healed. After 1 unit of blood yesterday, hemoglobin went up from 6.9 to 8.9. Basic metabolic profile is normal. She continues with her PPI. She is tolerating clear liquids. GI has ordered a bleeding scan, which is pending. ASSESSMENT AND PLAN: The patient had requested pain medications. She did not have any significant pain after laparoscopic gastric bypass, but has had some left abdominal pain since admission. Upon talking to her, these sound more like spasms. At this point, we will order oral analgesics. Await GI bleeding scan. Monitor hemoglobin after transfusion of 1 unit of blood. Anticipate possible discharge home in the next 24 to 48 hours. I have told her that she can resume her aspirin and Plavix in the next week. She was on Plavix and aspirin due to some eye changes that she describes as a stroke. Job ID: [id number]
--- NOTE | 2020-05-12 14:39 | PRG ---
DATE OF SERVICE: 05/12/2020 SUBJECTIVE: Ms. Leo reports 3 black stools last night. She has no abdominal pain. She is anxious about having had the continued black stools and is worried about going home with that. OBJECTIVE: VITAL SIGNS: Temperature is 98.0, pulse 81, and blood pressure 111/73. GENERAL: She is in no acute distress. Alert and oriented x3. LUNGS: Clear to auscultation bilaterally. HEART: Regular rate and rhythm without murmur. ABDOMEN: Soft, nontender, and nondistended. Bowel sounds are present. EXTREMITIES: No lower extremity edema. LABORATORY DATA: Hemoglobin is 8.9 today. She had only 1 unit transfused previously with admitting hemoglobin of 7.6. The 6.9 yesterday might have been a diluted specimen. IMPRESSION: Recurrent black stools and anemia. She had a history of iron-deficiency anemia and has been treated with Plavix. Upper endoscopy and recent EGD and colonoscopy were negative for bleeding source. Upper endoscopy yesterday was negative other than some mild friability at the proximal anastomosis. The distal anastomosis in the small bowel Anastacio-en-Y was not reached by enteroscopy. Overall, I think she stopped bleeding. Her hemoglobin is stable; however, she reports continued passage of black stools last night, this makes her nervous about going home. I think it would be reasonable to follow through with the bleeding scan negative, she can follow up in the office as an outpatient. RECOMMENDATIONS: 1. Nuclear medicine bleeding scan. 2. Advance diet after that. Job ID: [id number]
--- NOTE | 2020-05-12 14:43 | NM ---
NM Abdominal Bleeding Pyp Scan History: GI bleed Comparison: CT abdomen and pelvis 2 days prior Findings: Planar imaging of the abdomen was performed after the intravenous ministration 27 mCi Tc 99 m tagged red blood cells. There is adequate tagging of radiotracer with normal visualization of the vascular structures. No mary dence for bleed. Impression: No evidence for GI bleed.
[2020-05-12] MEDS: Pramipexole Di-HCl 1 MG TAB PO SCH ×2 (14:50→20:41)
[2020-05-12] MEDS: Baclofen 10 MG TAB PO SCH ×2 (14:50→20:41)
[2020-05-12] MEDS: Gabapentin 300 MG CAP PO SCH (20:41)
[2020-05-13 05:55] LABS: #Eosinphils 0.2 thou/uL (0.0-0.7); #Lymphocytes 1.2 thou/uL (1.20-3.40); #Monocytes 0.3 thou/uL (0.11-0.59); #Neutrophils 1.4 thou/uL (1.40-6.50); %Basophils 0.6 % (0.0-1.0); %Eosinophils 5.7 % (0.0-10.0); %Lymphocytes 39.4 % (21.0-51.0); %Monocytes 8.7 % (0.0-10.0); %Neutrophils 45.6 % (42.0-75.0); Hemoglobin 7.4 g/dL (12.0-16.0); Mean Corpuscular HGB CONC 31.7 g/dL (32.0-36.0); Mean Corpuscular Hemoglobin 27.4 pg (27.0-31.0); Mean Corpuscular Volume 86.5 fL (78.0-98.0); Mean Platelet Volume 6.6 fL (7.4-10.4); Platelet Count 296 thou/uL (130-400); Red Blood Cell (RBC) Count 2.68 mill/uL (4.20-5.40)
[2020-05-13] MEDS: Baclofen 10 MG TAB PO SCH ×3 (08:26→20:40)
[2020-05-13] MEDS: Pantoprazole 40 MG VIAL IVP SCH (08:26)
[2020-05-13] MEDS: Polyethylene Glycol 3350 17 GM Packet PO SCH (08:26)
[2020-05-13] MEDS: Pramipexole Di-HCl 0.25 MG TAB PO SCH (08:26)
[2020-05-13] MEDS: Dextrose 5%-Lactated Ringers 1,000 ML IV SCH (08:47)
[2020-05-13] MEDS ORDERED: Gabapentin 400 MG CAP PO SCH (09:00)
[2020-05-13] MEDS ORDERED: Ondansetron ODT 8 MG TAB PO PRN (12:54)
[2020-05-13] MEDS ORDERED: Ondansetron PF 4 MG/2 ML Vial IVP PRN (12:54)
[2020-05-13] MEDS ORDERED: Ondansetron ODT 4 MG TAB PO PRN (12:54)
[2020-05-13] MEDS ORDERED: Ondansetron ODT 8 MG TAB SL PRN (12:54)
--- NOTE | 2020-05-13 13:16 | PRG ---
DATE OF SERVICE: 05/13/2020 Evelina Leo is doing well. She feels well. She reports some bloody stools, but again she did not show the nurses. I specifically asked her nurses. The nurses have also requested this of her, but she has not and neglected to show antibody. She remained stable. She is not orthostatic. She is able to ambulate without problems. Temperature 97.8 degrees, pulse 94, and blood pressure 98/67. She is tolerating her pureed bariatric diet, which she will be on pureed for the next 2 weeks, then progressed to a soft bariatric diet after that. This morning, her hemoglobin was 7.4. She was transfused 1 unit of blood for 6.9 hemoglobin 2 days ago. Yesterday, her hemoglobin was 8.9, today is 7.4. Her bleeding scan is negative for any bleeding seen by nuclear scan. It is possible that she might be bleeding for her jejunojejunostomy which could not be visualized during her upper endoscopy. Currently, I would not plan any intervention, just observe her. Tentatively, we will plan on her going home today, but with her hemoglobin of 7.4, we probably need to watch her another day. I would saline lock her and observe her. She will continue her pureed bariatric diet, taking protein supplements , taking oral PPIs to convert her from IV. Hopefully, she can be discharged to home tomorrow. She has p.o. pain medications at home. OBJECTIVE: LUNGS: Clear to auscultation. CARDIAC: Regular rate and rhythm without murmur or gallop. ABDOMEN: Soft, nontender. Laparoscopic trocar site incisions well healed. Job ID: [id number]
[2020-05-13] MEDS: Pramipexole Di-HCl 1 MG TAB PO SCH ×2 (14:00→20:40)
[2020-05-13 19:11] LABS: Hemoglobin 7.9 g/dL (12.0-16.0)
[2020-05-13] MEDS ORDERED: Lactated Ringer's 500 ML IV SCH (19:15)
[2020-05-13] MEDS: Gabapentin 300 MG CAP PO SCH (20:40)
--- NOTE | 2020-05-14 02:44 | PRG ---
DATE OF SERVICE: 05/13/2020 SUBJECTIVE: The patient was seen this evening during rounds. She was resting comfortably in bed, asleep with no signs of acute distress. Nursing reported no acute events. OBJECTIVE: VITAL SIGNS: Temperature 98.1, pulse 87, respirations 14, oxygen saturation 96% on room air, and blood pressure 92/60. GENERAL: A well-appearing female in bed, sleeping with no signs of acute distress. PULMONARY: Equal chest rise and fall. No signs of acute respiratory distress. ASSESSMENT: 1. Status post gastrointestinal bleed, etiology unknown. She is post procedure day 2 for EGD. The patient continues to be hemodynamically stable. 2. Continue current bariatric pureed diet. Repeat blood work in the morning for possible discharge if hemoglobin stable and the patient continues to tolerate diet. Job ID: [id number]
[2020-05-14 05:40] LABS: #Eosinphils 0.1 thou/uL (0.0-0.7); #Lymphocytes 1.3 thou/uL (1.20-3.40); #Monocytes 0.2 thou/uL (0.11-0.59); #Neutrophils 1.3 thou/uL (1.40-6.50); %Basophils 0.3 % (0.0-1.0); %Eosinophils 4.3 % (0.0-10.0); %Lymphocytes 44.1 % (21.0-51.0); %Monocytes 6.4 % (0.0-10.0); %Neutrophils 44.8 % (42.0-75.0); Hemoglobin 7.5 g/dL (12.0-16.0); Mean Corpuscular HGB CONC 31.5 g/dL (32.0-36.0); Mean Corpuscular Hemoglobin 27.6 pg (27.0-31.0); Mean Corpuscular Volume 87.6 fL (78.0-98.0); Mean Platelet Volume 6.3 fL (7.4-10.4); Platelet Count 338 thou/uL (130-400); RBC Distribution Width 14.2 % (11.5-14.5); Red Blood Cell (RBC) Count 2.72 mill/uL (4.20-5.40)
[2020-05-14] MEDS ORDERED: Pantoprazole 40 MG GRANULES PACKET PO SCH (09:00)
[2020-05-14] MEDS ORDERED: Multivitamins CHEW w/Iron Tablet PO SCH (09:00)
[2020-05-14] MEDS: Polyethylene Glycol 3350 17 GM Packet PO SCH (09:17)
[2020-05-14] MEDS: Pramipexole Di-HCl 0.25 MG TAB PO SCH (09:18)
[2020-05-14] MEDS: Baclofen 10 MG TAB PO SCH (11:27)
[2020-05-14 11:49] VITALS: BP 96/63; TEMP 98.2
--- NOTE | 2020-05-14 13:51 | DIS ---
DATE OF ADMISSION: 05/10/2020 DATE OF DISCHARGE: 05/14/2020 DISCHARGE ATTENDING: Dr. Figueroa. CONSULTS: Gastroenterology, Dr. Sosa and Dr. Choi PROCEDURES: 1. On 05/11/2020, esophagogastroduodenoscopy with push small-bowel enteroscopy by Dr. Sosa. 2. GI bleed scan nuclear medicine. No evidence for GI bleed. PRIMARY DIAGNOSES: 1. Status post gastrointestinal bleed, hemodynamically stable. 2. History of cerebrovascular accident, restless legs syndrome, hiatal hernia, gastric bypass surgery. DISCHARGE MEDICATIONS: 1. Acetaminophen 1000 mg p.o. q.6 hours. 2. Vitamin C 500 mg p.o. b.i.d. 3. Baclofen 10 mg p.o. three times a day. 4. Ferrous sulfate 325 mg b.i.d. with meals. 5. Gabapentin 1800 mg p.o. at bedtime. 6. Hydrocodone. 7. Multivitamins with iron daily. 8. Mirapex 0.5 mg p.o. daily. 9. Aspirin 325 mg p.o. daily. 10. Magnesium oxide 1000 mg p.o. b.i.d. DISCONTINUED MEDICATIONS: Plavix 75 mg one tablet p.o. daily, the patient can restart the Plavix in 1 week, 05/21/2020. HISTORY OF PRESENT ILLNESS AND HOSPITAL COURSE: This is a 54-year-old female who is status post laparoscopic Anastacio-en-Y gastric bypass and paraesophageal hiatal hernia repair on April 28. She was discharged on 05/09/2020, was tolerating her diet. The patient started having bloody stools and presented to the emergency room on the evening that she was discharged. Her hemoglobin was 9.4, which was the same as her hemoglobin on postop day #1. She was observed and continue to have blood per rectum. Her aspirin and Plavix had been discontinued. She returned to the emergency room. Her hemoglobin had dropped to 7.6 and was mildly tachycardic. The patient had no nausea or vomiting and was tolerating a clear liquid diet. The patient was given 1 unit of packed red blood cells during her hospital stay. Gastroenterology was consulted and an EGD was performed, showing mild erosion. The patient also had a nuclear medicine GI scan showing no bleeding. On the day of discharge, the patient was seen and evaluated by Dr. Figueroa. The patient had no complaints or concerns. The patient denied pain, nausea, or vomiting. The patient was tolerating her bariatric pureed diet. The patient's vital signs were stable and her exam was unremarkable including cardiopulmonary and GI exam. The patient was deemed stable for discharge home. DISPOSITION: Stable. DISCHARGE INSTRUCTIONS: 1. Location: Home. 2. Diet: Bariatric pureed diet. 3. Activity: As tolerated. 4. Followup: Follow up with Dr. Nj and Gastroenterology, Dr. Sosa or Dr. Choi. The patient has been instructed to discontinue her Plavix for one week. The patient may restart her aspirin. The patient was evaluated by Dr. Figueroa. Job ID: [id number] MTDD
[2020-05-14] MEDS ORDERED: Ferrous Sulfate 325 MG TAB PO SCH (17:00)
[2020-05-14] MEDS ORDERED: Ascorbic Acid 500 mg Chewable Tablet PO SCH (21:00)
--- NOTE | 2020-05-16 05:31 | PQF ---
CLINICAL DOCUMENTATION CLARIFICATION FORM: Dear : Kevin Figueroa Date / Time: 05/16/2020 05:30 Please exercise your independent, professional judgment in responding to the clarification form. Clinical indicators are provided on the bottom of this form for your review Can you please specify the etiology of patients melena? Please check appropriate box(es): [x ] Erosion in the gastrojejunal anastomosis [ ] Post-op complication of recent anastacio-en-y gastric bypass with hernia repair [ ] Other diagnosis [ ] Unable to determine Physician Signature: Date/Time: For continuity of documentation, please document condition throughout progress notes and discharge summary. Thank You. To be completed by CDI/Coding staff for physician review: Present Clinical Indicators - Signs / Symptoms / Labs Results and Location in Medical Record [x] Rectal bleeding HP 05/10 [x] multiple diverticula throughout the colon Consult 05/11 [x] she had acute onset of melena Consult 05/11 [x] has some shallow erosions at the gastrojejunal anastomosis with mild oozing but no significant hemorrhage OP Note 05/11 [x] possible that she might be bleeding for her jejunojejunostomy PN 05/13 [x] s/p GI bleed etiology unknown PN 05/13 [x] GI bleed scan , no evidence for GI bleed DS 05/14 Present Risk Factors Results and Location in Medical Record [x] s/p Lap Anastacio en y gastric bypass with hernia repair HP 05/10 [x] Obesity HP 05/10 [x] Reflux esophagitis HP 05/10 [x] Use of Plavix Consult 05/11 [x] Erosion in the gastrojejunal anastomosis OP Note 05/11 Present Treatments Results and Location in Medical Record [x] CT of abdomen and pelvis Collected 05/10 [x] EGD OP Note 05/11 [x] GI bleed scan Collected 05/12 [x] Consult Gastroenterology DS 05/14 [x] IVF MAR 05/10 CDS/Quality Assurance Coordinator Signature:Della Vieira Phone #: [phone] Date/Time: 05/16/2020 05:30 This is a permanent part of the Medical Record [facility]
== END 2020-05-14 14:48 | disposition home or self-care (01) | DRG 378 ==
LOC: ERS 21:23 → SURG A 22:48
PROVIDERS: ADMIT Specialist; ATTEND Specialist
PROC: 30233N1 Transfusion of Nonautologous Red Blood Cells into Peripheral Vein, Percutaneous Approach (ICD-10-PCS; 2020-05-11)
PROC: 0DJ08ZZ Inspection of Upper Intestinal Tract, Via Natural or Artificial Opening Endoscopic (ICD-10-PCS; principal; 2020-05-13)
DX: K28.4 Chronic or unspecified gastrojejunal ulcer with hemorrhage (principal); D62 Acute posthemorrhagic anemia; G25.81 Restless legs syndrome; K21.0 Gastro-esophageal reflux disease with esophagitis; E66.9 Obesity, unspecified; M79.7 Fibromyalgia; G47.30 Sleep apnea, unspecified; F41.9 Anxiety disorder, unspecified; F32.9 Major depressive disorder, single episode, unspecified; Z86.73 Personal history of transient ischemic attack (TIA), and cerebral infarction without residual deficits; Z68.39 Body mass index [BMI] 39.0-39.9, adult; Z88.8 Allergy status to other drugs, medicaments and biological substances; Z90.710 Acquired absence of both cervix and uterus; Z79.01 Long term (current) use of anticoagulants; Z79.82 Long term (current) use of aspirin; Z79.899 Other long term (current) drug therapy
CPT/HCPCS: 36415; 36430; 74177; 78278; 80048; 80053; 82274; 83690; 85025; 86850; 86900; 86901; 87635; 93005; 96374; 99284; A9604; C9113; J2250; J2704; J7121; P9016; Q0162; Q9967; U0003

== ENCOUNTER 2020-08-28 13:13 | Emergency (ER) | payer MEDICARE, MEDICAID ==
[2020-08-28] MEDS ORDERED: Ondansetron PF 4 MG/2 ML Vial ONE (14:22)
--- NOTE | 2020-08-28 14:25 | RAD ---
PORTABLE CHEST: Date: 08-28-2020 PROVIDED CLINICAL HISTORY: Abdominal pain, vomiting. FINDINGS: Cardiac and mediastinal silhouette is within normal limits. Lungs appear clear. No pleural fluid or p neumothorax apparent. IMPRESSION: No evidence for an acute cardiopulmonary process. POS: SAFIA
[2020-08-28 14:59] LABS: #Eosinphils 0.1 thou/uL (0.0-0.7); #Lymphocytes 2.2 thou/uL (1.20-3.40); #Monocytes 0.5 thou/uL (0.11-0.59); %Basophils 0.4 % (0.0-1.0); %Eosinophils 0.9 % (0.0-10.0); %Lymphocytes 28.1 % (21.0-51.0); %Monocytes 5.9 % (0.0-10.0); %Neutrophils 64.7 % (42.0-75.0); Hemoglobin 10.4 g/dL (12.0-16.0); Mean Corpuscular HGB CONC 35.1 g/dL (32.0-36.0); Mean Corpuscular Volume 85.5 fL (78.0-98.0); Mean Platelet Volume 7.8 fL (7.4-10.4); Platelet Count 249 thou/uL (130-400); RBC Distribution Width 20.4 % (11.5-14.5); Red Blood Cell (RBC) Count 3.47 mill/uL (4.20-5.40); White Blood Cell (WBC) Count 7.8 thou/uL (4.8-10.8)
[2020-08-28 15:06] LABS: BHCG - Serum Negative (NEGATIVE); Pregs Control Background? CLEAR/WHITE (CLR/WHITE); Pregs Control Bar Appear? YES (CONTROL BAR)
[2020-08-28 15:12] LABS: Anisocytosis SLIGHT = 6-15 cells (100X) (0-5/hpf); MDiff Complete? YES; Ovalocytes SLIGHT = 2-5 cells (100X) (0-1/hpf); Platelet Morphology Comment Appears Adequate; Polychromasia SLIGHT = 2-3 cells (100X) (0-2/hpf)
[2020-08-28 15:14] LABS: ALT (SGPT) 21 U/L (8-55); AST (SGOT) 17 U/L (5-34); Albumin 3.5 g/dL (3.5-5.0); Alkaline Phosphatase 70 U/L (40-110); Anion Gap 11 mmol/L (10-20); BUN (Urea Nitrogen) 30 mg/dL (9.8-20.1); Bilirubin, Total Less than 0.2 mg/dL (0.2-1.2); Calc. Creatinine Clearance 0 mL/min (70-130); Calcium 8.5 mg/dL (7.8-10.44); Carbon Dioxide 24 mmol/L (22-29); Chloride 107 mmol/L (98-107); Estimated GFR-MDRD Greater than 90; Globulin 2.3 g/dL (2.4-3.5); Glucose 96 mg/dL (70-105); Lipase 27 U/L (8-78); Potassium 4.3 mmol/L (3.5-5.1); Protein, Total 5.8 g/dL (6.0-8.3); Sodium 138 mmol/L (136-145)
[2020-08-28] MEDS ORDERED: Iopamidol-370 76% 500 ML 1 ML ONE (15:39)
[2020-08-28] MEDS ORDERED: Iopamidol 370 76% 50 ML VIAL FS ONE (15:39)
[2020-08-28] MEDS ORDERED: Pantoprazole 40 MG VIAL ONE (15:46)
[2020-08-28 16:27] LABS: Bacteria/HPF None Seen HPF (None Seen); Bilirubin Negative (Negative); Blood, Urine Negative (Negative); Clarity Clear (Clear); Glucose, Urine (Dipstick) Normal (Negative); Ketone, Urine Negative (Negative); Leukocyte 75 Leu/uL (Negative); Nitrite Negative (Negative); Protein, Urine (Dipstick) Negative (Neg-Trace); RBC/HPF 0-3 HPF (0-3); Specific Gravity, Urine 1.018 (1.002-1.036); Squamous Epithelial 0-3 HPF (0-3); Urobilinogen Normal mg/dL (Less than 2); WBC/HPF 0-3 HPF (0-3)
--- NOTE | 2020-08-28 16:43 | CT ---
CT OF THE ABDOMEN AND PELVIS WITH IV CONTRAST INDICATION: Abdominal pain with bloody stool COMPARISON: Prior CT abdomen pelvis dated May 10, 2020 FINDINGS: ABDOMEN: Lung bases: Mild subsegmental volume loss within the right lower lobe. Liver: No focal lesion. Gallbladder: Normal appearing. Pancreas: Normal. Adrenal glands: Normal. Spleen: Normal. Kidneys and ureters: Normal. No hydronephrosis. Vasculature: There are mild vascular calcifications seen involving the visualized vasculature. There is a retroaortic left renal vein. Lymph nodes:No lymphadenopathy. Free fluid in abdomen:No free fluid is evident. PELVIS: Small and large bowel: There is postsurgical change of a partial colectomy. Small bowel appears withi n normal limits. There is postsurgical change of a gastric bypass. Appendix:Normal Bladder: Normal. Rectal and perirectal soft tissues:Normal. Reproductive structures: Surgically absent. Soft tissue mass seen within the lower pelvis on the prio r examination is no longer identified. Free fluid in pelvis: No free fluid is evident. Lymphadenopathy pelvis: No lymphadenopathy is evident. Osseous structures: No acute osseous abnormality. No destructive osteolytic or osteoblastic lesion i s identified. There is scattered degenerative and osteoarthritic changes. Soft tissues:Fat necrosis involving the subcutaneous tissues of the anterior abdominal wall of the up per abdomen on image 51 of series 2 is stable. IMPRESSION: 1. No CT explanation for the patient's abdominal pain or bloody stools. 2. Soft tissue density seen within the lower pelvis on the prior examination is no longer identified and may have been intervally surgically removed or potentially could've reflected small amount of hemorrhage that has resolved. 3. Other chronic findings as above
== END 2020-08-28 18:17 | disposition home or self-care (01) ==
LOC: ERS 13:13
DX: K64.4 Residual hemorrhoidal skin tags (principal); G47.30 Sleep apnea, unspecified; F32.9 Major depressive disorder, single episode, unspecified; F41.9 Anxiety disorder, unspecified; Z79.899 Other long term (current) drug therapy; Z79.82 Long term (current) use of aspirin; Z86.73 Personal history of transient ischemic attack (TIA), and cerebral infarction without residual deficits
CPT/HCPCS: 71045; 74177; 80053; 81003; 81015; 82274; 83690; 84484; 84703; 85025; C9113; J2405; Q9967

== ENCOUNTER 2020-08-31 09:49 | Day surgery (SDC) | payer MEDICARE, MEDICAID ==
[2020-08-31] MEDS ORDERED: Acetaminophen 500 MG TAB PO SCH (10:15)
[2020-08-31] MEDS ORDERED: diphenhydrAMINE 25 MG CAP PO SCH (10:30)
[2020-08-31 16:16] VITALS: BP 88/54; TEMP 98.1
[2020-08-31 16:32] LABS: #Basophils 0.1 thou/uL (0.0-0.2); #Eosinphils 0.1 thou/uL (0.0-0.7); #Lymphocytes 1.6 thou/uL (1.20-3.40); #Monocytes 0.3 thou/uL (0.11-0.59); #Neutrophils 4.2 thou/uL (1.40-6.50); %Basophils 1.2 % (0.0-1.0); %Eosinophils 1.4 % (0.0-10.0); %Lymphocytes 25.8 % (21.0-51.0); %Monocytes 4.9 % (0.0-10.0); %Neutrophils 66.8 % (42.0-75.0); Hemoglobin 7.9 g/dL (12.0-16.0); Mean Corpuscular HGB CONC 34.8 g/dL (32.0-36.0); Mean Corpuscular Volume 89.2 fL (78.0-98.0); Mean Platelet Volume 8.7 fL (7.4-10.4); Platelet Count 105 thou/uL (130-400); RBC Distribution Width 19.1 % (11.5-14.5); Red Blood Cell (RBC) Count 2.54 mill/uL (4.20-5.40); White Blood Cell (WBC) Count 6.3 thou/uL (4.8-10.8)
[2020-08-31 16:53] LABS: Anisocytosis SLIGHT = 6-15 cells (100X) (0-5/hpf); MDiff Complete? YES; Platelet Morphology Comment Appears Decreased; Polychromasia MODERATE = 3-4 cells (100X) (0-2/hpf)
== END 2020-08-31 16:18 | disposition home or self-care (01) ==
LOC: ONC/OP 09:49
PROVIDERS: ATTEND Internal Medicine Hematology & Oncology
PROC: 30233N1 Transfusion of Nonautologous Red Blood Cells into Peripheral Vein, Percutaneous Approach (ICD-10-PCS; principal; 2020-08-31)
DX: D64.9 Anemia, unspecified (principal); D69.6 Thrombocytopenia, unspecified; Z88.8 Allergy status to other drugs, medicaments and biological substances
CPT/HCPCS: 36430; 82728; 83540; 83550; 85025; 86850; 86900; 86901; P9016; Q0163

== ENCOUNTER 2020-09-13 08:53 | Outpatient (CLI) | payer MEDICARE, MEDICAID ==
--- NOTE | 2020-09-13 10:16 | RAD ---
Upper GI and small bowel exam HISTORY: Acute blood loss anemia. FINDINGS: Single column barium evaluation shows postoperative changes of the stomach consistent with prior gastric bypass procedure. Very little stomach remains. No obstruction of passage of contrast into the jejunum in the left upper quadrant. Small amount of reflux of contrast into the esophagus. Small bowel mucosal pattern is within normal limits. No evidence of obstruction. Terminal ileum has a normal appearance and was opacified at 15 minutes. IMPRESSION : Postoperative changes of the stomach with gastrojejunostomy apparent. Small amount of gastroesophageal reflux. No pathologic abnormalities to explain blood loss. Rapid small bowel transit.
== END 2020-09-13 08:54 | disposition home or self-care (01) ==
LOC: RAD 08:53
PROVIDERS: ATTEND Physician Assistant Medical
DX: D62 Acute posthemorrhagic anemia (principal); K21.9 Gastro-esophageal reflux disease without esophagitis; Z98.890 Other specified postprocedural states
CPT/HCPCS: 74246

== ENCOUNTER 2021-02-14 10:23 | Outpatient (CLI) | payer MEDICARE, MEDICAID | END 2021-02-14 10:24 | disposition home or self-care (01) | LOC: BICMAMMO 10:23 | PROVIDERS: ATTEND Internal Medicine Rheumatology | DX: Z13.820 Encounter for screening for osteoporosis (principal); M06.9 Rheumatoid arthritis, unspecified; M85.89 Other specified disorders of bone density and structure, multiple sites | CPT/HCPCS: 77080 ==

== ENCOUNTER 2021-03-08 21:40 | Inpatient (IN) | payer MEDICARE, MEDICAID ==
[2021-03-08] MEDS ORDERED: Pantoprazole 40 MG VIAL ONE (22:21)
[2021-03-08] MEDS ORDERED: Pantoprazole 80 MG in Sodium Chloride 0.9% 100 ML IVPB SCH (22:30)
[2021-03-08 22:46] LABS: #Eosinphils 0.1 thou/uL (0.0-0.7); #Lymphocytes 1.8 thou/uL (1.20-3.40); #Monocytes 0.5 thou/uL (0.11-0.59); #Neutrophils 7.4 thou/uL (1.40-6.50); %Basophils 0.2 % (0.0-1.0); %Lymphocytes 18.1 % (21.0-51.0); %Monocytes 5.1 % (0.0-10.0); %Neutrophils 75.6 % (42.0-75.0); Hemoglobin 8.7 g/dL (12.0-16.0); Mean Corpuscular HGB CONC 33.6 g/dL (32.0-36.0); Mean Corpuscular Hemoglobin 31.4 pg (27.0-31.0); Mean Corpuscular Volume 93.2 fL (78.0-98.0); Mean Platelet Volume 6.3 fL (7.4-10.4); Platelet Count 244 thou/uL (130-400); RBC Distribution Width 12.3 % (11.5-14.5); Red Blood Cell (RBC) Count 2.77 mill/uL (4.20-5.40); White Blood Cell (WBC) Count 9.8 thou/uL (4.8-10.8)
[2021-03-08 23:05] LABS: ALT (SGPT) 22 U/L (8-55); AST (SGOT) 14 U/L (5-34); Alkaline Phosphatase 68 U/L (40-110); Anion Gap 11 mmol/L (10-20); BUN (Urea Nitrogen) 30 mg/dL (9.8-20.1); Bilirubin, Total 0.2 mg/dL (0.2-1.2); Calc. Creatinine Clearance 0 mL/min (70-130); Calcium 7.4 mg/dL (7.8-10.44); Carbon Dioxide 23 mmol/L (22-29); Chloride 108 mmol/L (98-107); Globulin 1.6 g/dL (2.4-3.5); Glucose 114 mg/dL (70-105); Lipase 33 U/L (8-78); Potassium 4.3 mmol/L (3.5-5.1); Protein, Total 4.6 g/dL (6.0-8.3); Sodium 138 mmol/L (136-145)
[2021-03-09] MEDS ORDERED: Bisacodyl 10 MG SUPP PR PRN (01:07)
[2021-03-09] MEDS ORDERED: hydrALAZINE 20 MG/ML VIAL SLOW IVP PRN (01:09)
[2021-03-09] MEDS ORDERED: Octreotide Acetate 1,250 MCG in Sodium Chloride 0.9% 250 ML 250 ML IVPB SCH (01:15)
[2021-03-09] MEDS ORDERED: Morphine 4 MG/ML VIAL SLOW IVP PRN (01:17)
[2021-03-09 01:58] VITALS: BMI 30.1
[2021-03-09] MEDS: Dextrose 5%-Lactated Ringers 1,000 ML IV SCH ×3 (02:27→20:38)
[2021-03-09 03:15] LABS: #Basophils 0.1 thou/uL (0.0-0.2); #Eosinphils 0.1 thou/uL (0.0-0.7); #Lymphocytes 1.9 thou/uL (1.20-3.40); #Monocytes 0.4 thou/uL (0.11-0.59); #Neutrophils 4.7 thou/uL (1.40-6.50); %Basophils 0.8 % (0.0-1.0); %Eosinophils 1.9 % (0.0-10.0); %Lymphocytes 25.9 % (21.0-51.0); %Monocytes 5.7 % (0.0-10.0); %Neutrophils 65.7 % (42.0-75.0); Hemoglobin 7.6 g/dL (12.0-16.0); Mean Corpuscular HGB CONC 33.8 g/dL (32.0-36.0); Mean Corpuscular Hemoglobin 31.4 pg (27.0-31.0); Mean Corpuscular Volume 92.8 fL (78.0-98.0); Mean Platelet Volume 6.3 fL (7.4-10.4); Platelet Count 203 thou/uL (130-400); RBC Distribution Width 12.5 % (11.5-14.5); Red Blood Cell (RBC) Count 2.41 mill/uL (4.20-5.40); White Blood Cell (WBC) Count 7.2 thou/uL (4.8-10.8)
[2021-03-09 06:06] LABS: Hemoglobin 7.5 g/dL (12.0-16.0)
[2021-03-09 06:20] LABS: ALT (SGPT) 19 U/L (8-55); AST (SGOT) 12 U/L (5-34); Albumin 2.8 g/dL (3.5-5.0); Alkaline Phosphatase 57 U/L (40-110); Anion Gap 8 mmol/L (10-20); BUN (Urea Nitrogen) 22 mg/dL (9.8-20.1); Bilirubin, Total 0.3 mg/dL (0.2-1.2); Calc. Creatinine Clearance 130 mL/min (70-130); Calcium 7.8 mg/dL (7.8-10.44); Carbon Dioxide 26 mmol/L (22-29); Chloride 108 mmol/L (98-107); Globulin 1.7 g/dL (2.4-3.5); Glucose 116 mg/dL (70-105); Potassium 4.1 mmol/L (3.5-5.1); Protein, Total 4.5 g/dL (6.0-8.3); Sodium 138 mmol/L (136-145)
[2021-03-09 07:50] LABS: Hemoglobin 7.7 g/dL (12.0-16.0)
[2021-03-09 08:49] LABS: SARS-CoV-2 PCR by NAA Not Detected (NotDetected)
[2021-03-09] MEDS ORDERED: Pantoprazole 40 MG VIAL IVP SCH (09:45)
[2021-03-09] MEDS ORDERED: Sodium Chloride 0.9% (PF) 10 ML VIAL FS PRN (10:00)
[2021-03-09 12:00] LABS: #Eosinphils 0.1 thou/uL (0.0-0.7); #Lymphocytes 1.7 thou/uL (1.20-3.40); #Monocytes 0.4 thou/uL (0.11-0.59); #Neutrophils 3.5 thou/uL (1.40-6.50); %Basophils 0.6 % (0.0-1.0); %Eosinophils 1.2 % (0.0-10.0); %Lymphocytes 30.1 % (21.0-51.0); %Monocytes 6.4 % (0.0-10.0); %Neutrophils 61.6 % (42.0-75.0); Hemoglobin 7.8 g/dL (12.0-16.0); Mean Corpuscular HGB CONC 33.8 g/dL (32.0-36.0); Mean Corpuscular Hemoglobin 31.8 pg (27.0-31.0); Mean Corpuscular Volume 93.9 fL (78.0-98.0); Mean Platelet Volume 6.1 fL (7.4-10.4); Platelet Count 218 thou/uL (130-400); RBC Distribution Width 12.6 % (11.5-14.5); Red Blood Cell (RBC) Count 2.47 mill/uL (4.20-5.40); White Blood Cell (WBC) Count 5.7 thou/uL (4.8-10.8)
[2021-03-09] MEDS ORDERED: PROPOFOL 200 MG/20 ML VIAL ONE (12:30)
[2021-03-09] MEDS ORDERED: EPINEPHrine 1 MG/10 ML Abboject SYRINGE ONE (12:30)
[2021-03-09] MEDS ORDERED: Lidocaine 1% PF 5 ML VIAL ONE (12:30)
[2021-03-09] MEDS ORDERED: Fentanyl 100 MCG/2 ML VIAL ONE (12:58)
[2021-03-09 15:22] LABS: Hemoglobin 8.4 g/dL (12.0-16.0)
[2021-03-09] MEDS ORDERED: Pramipexole Di-HCl 1 MG TAB PO SCH (18:00)
[2021-03-09 19:53] LABS: Hemoglobin 7.2 g/dL (12.0-16.0)
[2021-03-09] MEDS: Pantoprazole 40 MG VIAL IVP SCH (20:38)
[2021-03-09] MEDS: Pramipexole Di-HCl 1 MG TAB PO SCH (20:38)
[2021-03-09] MEDS: Baclofen 10 MG TAB PO SCH (21:34)
[2021-03-09] MEDS ORDERED: Gabapentin 300 MG CAP PO SCH (22:15)
[2021-03-09] MEDS ORDERED: clonazePAM 1 MG TAB PO SCH (22:15)
[2021-03-09 23:28] LABS: Hemoglobin 7.4 g/dL (12.0-16.0)
[2021-03-10] MEDS: Dextrose 5%-Lactated Ringers 1,000 ML IV SCH (04:55)
[2021-03-10 05:50] LABS: #Eosinphils 0.1 thou/uL (0.0-0.7); #Lymphocytes 1.8 thou/uL (1.20-3.40); #Monocytes 0.4 thou/uL (0.11-0.59); #Neutrophils 3.6 thou/uL (1.40-6.50); %Basophils 0.4 % (0.0-1.0); %Lymphocytes 30.5 % (21.0-51.0); %Monocytes 6.7 % (0.0-10.0); %Neutrophils 61.4 % (42.0-75.0); Hemoglobin 7.2 g/dL (12.0-16.0); Mean Corpuscular HGB CONC 32.8 g/dL (32.0-36.0); Mean Corpuscular Hemoglobin 30.7 pg (27.0-31.0); Mean Corpuscular Volume 93.5 fL (78.0-98.0); Mean Platelet Volume 6.2 fL (7.4-10.4); Platelet Count 196 thou/uL (130-400); Red Blood Cell (RBC) Count 2.34 mill/uL (4.20-5.40); White Blood Cell (WBC) Count 5.8 thou/uL (4.8-10.8)
[2021-03-10 05:58] LABS: Anion Gap 10 mmol/L (10-20); BUN (Urea Nitrogen) 11 mg/dL (9.8-20.1); Calc. Creatinine Clearance 126 mL/min (70-130); Carbon Dioxide 27 mmol/L (22-29); Chloride 109 mmol/L (98-107); Glucose 104 mg/dL (70-105); Potassium 4.1 mmol/L (3.5-5.1); Sodium 142 mmol/L (136-145)
[2021-03-10] MEDS: Pramipexole Di-HCl 1 MG TAB PO SCH ×4 (08:13→20:33)
[2021-03-10] MEDS: Baclofen 10 MG TAB PO SCH ×3 (08:13→20:33)
[2021-03-10] MEDS: Gabapentin 400 MG CAP PO SCH (08:13)
[2021-03-10] MEDS: Pantoprazole 40 MG VIAL IVP SCH ×2 (08:14→20:34)
[2021-03-10] MEDS ORDERED: clonazePAM 1 MG TAB PO SCH (09:00)
[2021-03-10 14:20] LABS: Hemoglobin 8.7 g/dL (12.0-16.0)
[2021-03-10] MEDS: Ferrous Sulfate 325 MG TAB PO SCH (16:26)
[2021-03-10 19:19] LABS: Hemoglobin 8.1 g/dL (12.0-16.0)
[2021-03-10] MEDS: Gabapentin 300 MG CAP PO SCH (20:32)
[2021-03-10] MEDS: clonazePAM 1 MG TAB PO SCH (20:33)
[2021-03-11 05:55] LABS: #Eosinphils 0.1 thou/uL (0.0-0.7); #Lymphocytes 1.8 thou/uL (1.20-3.40); #Monocytes 0.4 thou/uL (0.11-0.59); #Neutrophils 2.6 thou/uL (1.40-6.50); %Basophils 0.4 % (0.0-1.0); %Eosinophils 1.3 % (0.0-10.0); %Lymphocytes 37.2 % (21.0-51.0); %Monocytes 7.7 % (0.0-10.0); %Neutrophils 53.4 % (42.0-75.0); Mean Corpuscular Hemoglobin 31.2 pg (27.0-31.0); Mean Corpuscular Volume 94.7 fL (78.0-98.0); Mean Platelet Volume 6.1 fL (7.4-10.4); Platelet Count 194 thou/uL (130-400); RBC Distribution Width 13.2 % (11.5-14.5); Red Blood Cell (RBC) Count 2.23 mill/uL (4.20-5.40); White Blood Cell (WBC) Count 4.8 thou/uL (4.8-10.8)
[2021-03-11 06:14] LABS: Anion Gap 8 mmol/L (10-20); BUN (Urea Nitrogen) 11 mg/dL (9.8-20.1); Calc. Creatinine Clearance 120 mL/min (70-130); Calcium 8.2 mg/dL (7.8-10.44); Carbon Dioxide 28 mmol/L (22-29); Chloride 109 mmol/L (98-107); Glucose 85 mg/dL (70-105); Potassium 4.4 mmol/L (3.5-5.1); Sodium 141 mmol/L (136-145)
[2021-03-11] MEDS: Gabapentin 400 MG CAP PO SCH (08:01)
[2021-03-11] MEDS: Pantoprazole 40 MG VIAL IVP SCH ×2 (08:02→20:47)
[2021-03-11] MEDS: Baclofen 10 MG TAB PO SCH ×3 (08:02→20:46)
[2021-03-11] MEDS: Pramipexole Di-HCl 1 MG TAB PO SCH ×3 (08:02→20:46)
[2021-03-11] MEDS: Ferrous Sulfate 325 MG TAB PO SCH (08:02)
[2021-03-11] MEDS ORDERED: GoLYTELY 4,000 ml Bottle PO SCH (13:45)
[2021-03-11 18:25] LABS: Hemoglobin 8.8 g/dL (12.0-16.0)
[2021-03-11] MEDS: Gabapentin 300 MG CAP PO SCH (20:45)
[2021-03-11] MEDS: clonazePAM 1 MG TAB PO SCH (20:46)
[2021-03-12] MEDS ORDERED: Acetaminophen 325 MG TAB PO PRN (04:06)
[2021-03-12 07:10] LABS: #Eosinphils 0.1 thou/uL (0.0-0.7); #Lymphocytes 2.2 thou/uL (1.20-3.40); #Monocytes 0.4 thou/uL (0.11-0.59); #Neutrophils 4.6 thou/uL (1.40-6.50); %Basophils 0.6 % (0.0-1.0); %Eosinophils 1.5 % (0.0-10.0); %Lymphocytes 29.7 % (21.0-51.0); %Monocytes 5.6 % (0.0-10.0); %Neutrophils 62.7 % (42.0-75.0); Hemoglobin 9.6 g/dL (12.0-16.0); Mean Corpuscular HGB CONC 34.9 g/dL (32.0-36.0); Mean Corpuscular Hemoglobin 32.8 pg (27.0-31.0); Mean Platelet Volume 6.2 fL (7.4-10.4); Platelet Count 244 thou/uL (130-400); RBC Distribution Width 13.8 % (11.5-14.5); Red Blood Cell (RBC) Count 2.93 mill/uL (4.20-5.40); White Blood Cell (WBC) Count 7.4 thou/uL (4.8-10.8)
[2021-03-12] MEDS: Pramipexole Di-HCl 1 MG TAB PO SCH (08:24)
[2021-03-12] MEDS: Gabapentin 400 MG CAP PO SCH (08:24)
[2021-03-12] MEDS: Baclofen 10 MG TAB PO SCH (08:25)
[2021-03-12] MEDS: Pantoprazole 40 MG VIAL IVP SCH (08:25)
[2021-03-12 13:03] VITALS: BP 102/68; TEMP 97.4
== END 2021-03-12 14:05 | disposition home or self-care (01) | DRG 378 ==
LOC: ERS 21:40 → T4-B 03-09 00:49
PROVIDERS: ADMIT Internal Medicine; ATTEND Internal Medicine
PROC: 0W3P8ZZ Control Bleeding in Gastrointestinal Tract, Via Natural or Artificial Opening Endoscopic (ICD-10-PCS; principal; 2021-03-09)
PROC: 30233N1 Transfusion of Nonautologous Red Blood Cells into Peripheral Vein, Percutaneous Approach (ICD-10-PCS; 2021-03-11)
DX: K28.4 Chronic or unspecified gastrojejunal ulcer with hemorrhage (principal); D62 Acute posthemorrhagic anemia; Z20.822 Contact with and (suspected) exposure to COVID-19; M79.7 Fibromyalgia; F41.9 Anxiety disorder, unspecified; F32.9 Major depressive disorder, single episode, unspecified; E66.9 Obesity, unspecified; M06.9 Rheumatoid arthritis, unspecified; G25.81 Restless legs syndrome; T39.395A Adverse effect of other nonsteroidal anti-inflammatory drugs [NSAID], initial encounter; I95.1 Orthostatic hypotension; Z90.49 Acquired absence of other specified parts of digestive tract; Z90.710 Acquired absence of both cervix and uterus; Z68.30 Body mass index [BMI] 30.0-30.9, adult; Z88.8 Allergy status to other drugs, medicaments and biological substances; Z79.899 Other long term (current) drug therapy; Z79.82 Long term (current) use of aspirin; Z79.02 Long term (current) use of antithrombotics/antiplatelets; Z86.73 Personal history of transient ischemic attack (TIA), and cerebral infarction without residual deficits; Z87.19 Personal history of other diseases of the digestive system; Z98.890 Other specified postprocedural states
CPT/HCPCS: 36415; 36430; 71045; 78278; 80048; 80053; 83605; 83690; 84484; 85025; 86850; 86900; 86901; 87040; 87635; 96365; A9604; C9113; J0171; J2704; J3010; J3490; P9016; U0003; U0005

== ENCOUNTER 2021-03-16 02:19 | Inpatient (IN) | payer MEDICARE, MEDICAID ==
[2021-03-16 03:06] LABS: #Lymphocytes 1.1 thou/uL (1.20-3.40); #Monocytes 0.3 thou/uL (0.11-0.59); #Neutrophils 7.1 thou/uL (1.40-6.50); %Basophils 0.3 % (0.0-1.0); %Eosinophils 0.2 % (0.0-10.0); %Lymphocytes 12.5 % (21.0-51.0); %Monocytes 3.1 % (0.0-10.0); %Neutrophils 83.9 % (42.0-75.0); Mean Corpuscular HGB CONC 34.7 g/dL (32.0-36.0); Mean Corpuscular Hemoglobin 32.1 pg (27.0-31.0); Mean Corpuscular Volume 92.4 fL (78.0-98.0); Mean Platelet Volume 5.9 fL (7.4-10.4); Platelet Count 210 thou/uL (130-400); RBC Distribution Width 12.6 % (11.5-14.5); Red Blood Cell (RBC) Count 2.17 mill/uL (4.20-5.40); White Blood Cell (WBC) Count 8.5 thou/uL (4.8-10.8)
[2021-03-16] MEDS ORDERED: Ondansetron PF 4 MG/2 ML Vial IVP PRN (03:27)
[2021-03-16 04:19] LABS: SARS-CoV-2 NAA Rapid Test Not Detected (NotDetected)
[2021-03-16 06:15] VITALS: BMI 30.3
[2021-03-16] MEDS: Sodium Chloride 0.9% 1,000 ML IV SCH ×2 (06:44→15:41)
[2021-03-16 07:02] VITALS: BP 84/61
[2021-03-16] MEDS: Pantoprazole 40 MG VIAL IVP SCH ×2 (09:03→20:11)
[2021-03-16 10:32] LABS: Anion Gap 7 mmol/L (10-20); BUN (Urea Nitrogen) 20 mg/dL (9.8-20.1); Calc. Creatinine Clearance 146 mL/min (70-130); Calcium 7.6 mg/dL (7.8-10.44); Carbon Dioxide 24 mmol/L (22-29); Chloride 115 mmol/L (98-107); Glucose 98 mg/dL (70-105); Potassium 4.8 mmol/L (3.5-5.1); Sodium 141 mmol/L (136-145)
[2021-03-16] MEDS ORDERED: PHENYLEPHRINE-NS 100 MCG/ML 10 ML SYRINGE ONE (12:57)
[2021-03-16] MEDS ORDERED: PROPOFOL 200 MG/20 ML VIAL ONE (12:57)
[2021-03-16] MEDS: Pramipexole Di-HCl 1 MG TAB PO SCH ×2 (14:22→20:10)
[2021-03-16 16:55] LABS: Hemoglobin 7.9 g/dL (12.0-16.0); Platelet Count 165 thou/uL (130-400)
[2021-03-17 03:50] LABS: Anion Gap 4 mmol/L (10-20); BUN (Urea Nitrogen) 13 mg/dL (9.8-20.1); Calc. Creatinine Clearance 141 mL/min (70-130); Calcium 7.7 mg/dL (7.8-10.44); Carbon Dioxide 26 mmol/L (22-29); Chloride 112 mmol/L (98-107); Glucose 104 mg/dL (70-105); Magnesium 1.7 mg/dL (1.6-2.6); Potassium 3.7 mmol/L (3.5-5.1); Sodium 138 mmol/L (136-145)
[2021-03-17 03:51] LABS: #Basophils 0.1 thou/uL (0.0-0.2); #Eosinphils 0.1 thou/uL (0.0-0.7); #Lymphocytes 1.6 thou/uL (1.20-3.40); #Monocytes 0.2 thou/uL (0.11-0.59); #Neutrophils 5.5 thou/uL (1.40-6.50); %Basophils 0.7 % (0.0-1.0); %Eosinophils 1.8 % (0.0-10.0); %Monocytes 3.1 % (0.0-10.0); %Neutrophils 73.4 % (42.0-75.0); Hemoglobin 7.8 g/dL (12.0-16.0); Mean Corpuscular HGB CONC 33.1 g/dL (32.0-36.0); Mean Corpuscular Hemoglobin 30.1 pg (27.0-31.0); Mean Corpuscular Volume 90.9 fL (78.0-98.0); Mean Platelet Volume 6.1 fL (7.4-10.4); Platelet Count 154 thou/uL (130-400); RBC Distribution Width 13.5 % (11.5-14.5); Red Blood Cell (RBC) Count 2.58 mill/uL (4.20-5.40); White Blood Cell (WBC) Count 7.4 thou/uL (4.8-10.8)
[2021-03-17] MEDS: Sodium Chloride 0.9% 1,000 ML IV SCH ×2 (04:57→16:48)
[2021-03-17] MEDS: Pramipexole Di-HCl 0.25 MG TAB PO SCH (08:42)
[2021-03-17] MEDS: Pantoprazole 40 MG VIAL IVP SCH ×2 (08:42→20:50)
[2021-03-17] MEDS: Acetaminophen 325 MG TAB PO PRN (09:06)
[2021-03-17] MEDS: Pramipexole Di-HCl 1 MG TAB PO SCH ×2 (11:56→20:52)
[2021-03-17] MEDS: Ascorbic Acid 500 mg Chewable Tablet PO SCH (20:52)
[2021-03-17] MEDS: Baclofen 10 MG TAB PO SCH (20:52)
[2021-03-17] MEDS ORDERED: clonazePAM 1 MG TAB PO SCH (21:00)
[2021-03-17] MEDS ORDERED: Gabapentin 300 MG CAP PO SCH (21:00)
[2021-03-18 03:47] LABS: #Eosinphils 0.1 thou/uL (0.0-0.7); #Lymphocytes 1.8 thou/uL (1.20-3.40); #Monocytes 0.3 thou/uL (0.11-0.59); #Neutrophils 2.1 thou/uL (1.40-6.50); %Basophils 0.9 % (0.0-1.0); %Eosinophils 2.7 % (0.0-10.0); %Lymphocytes 41.6 % (21.0-51.0); %Monocytes 5.7 % (0.0-10.0); %Neutrophils 49.1 % (42.0-75.0); Hemoglobin 8.5 g/dL (12.0-16.0); Mean Corpuscular HGB CONC 33.5 g/dL (32.0-36.0); Mean Corpuscular Hemoglobin 30.4 pg (27.0-31.0); Mean Corpuscular Volume 90.8 fL (78.0-98.0); Mean Platelet Volume 6.1 fL (7.4-10.4); Platelet Count 197 thou/uL (130-400); RBC Distribution Width 13.3 % (11.5-14.5); Red Blood Cell (RBC) Count 2.81 mill/uL (4.20-5.40); White Blood Cell (WBC) Count 4.3 thou/uL (4.8-10.8)
[2021-03-18 04:08] LABS: Anion Gap 8 mmol/L (10-20); BUN (Urea Nitrogen) 8 mg/dL (9.8-20.1); Calc. Creatinine Clearance 120 mL/min (70-130); Calcium 8.5 mg/dL (7.8-10.44); Carbon Dioxide 24 mmol/L (22-29); Chloride 115 mmol/L (98-107); Glucose 101 mg/dL (70-105); Magnesium 1.9 mg/dL (1.6-2.6); Potassium 3.9 mmol/L (3.5-5.1); Sodium 143 mmol/L (136-145)
[2021-03-18] MEDS: Sodium Chloride 0.9% 1,000 ML IV SCH (05:55)
[2021-03-18] MEDS: Pramipexole Di-HCl 0.25 MG TAB PO SCH (08:21)
[2021-03-18] MEDS: Acetaminophen 325 MG TAB PO PRN (08:22)
[2021-03-18] MEDS: Baclofen 10 MG TAB PO SCH ×2 (08:22→16:09)
[2021-03-18] MEDS: Ascorbic Acid 500 mg Chewable Tablet PO SCH (08:22)
[2021-03-18] MEDS: Pantoprazole 40 MG VIAL IVP SCH (08:23)
[2021-03-18] MEDS: Ferrous Sulfate 325 MG TAB PO SCH ×2 (08:23→16:09)
[2021-03-18] MEDS ORDERED: Gabapentin 400 MG CAP PO SCH (09:00)
[2021-03-18] MEDS: Pramipexole Di-HCl 1 MG TAB PO SCH (11:48)
[2021-03-18 15:39] VITALS: TEMP 98
== END 2021-03-18 17:00 | disposition home or self-care (01) | DRG 378 ==
LOC: ERS 02:19 → IMCU/EMU 02:48
PROVIDERS: ADMIT Internal Medicine; ATTEND Internal Medicine
PROC: 0DJ08ZZ Inspection of Upper Intestinal Tract, Via Natural or Artificial Opening Endoscopic (ICD-10-PCS; principal; 2021-03-16)
PROC: 30233N1 Transfusion of Nonautologous Red Blood Cells into Peripheral Vein, Percutaneous Approach (ICD-10-PCS; 2021-03-16)
DX: K28.4 Chronic or unspecified gastrojejunal ulcer with hemorrhage (principal); D62 Acute posthemorrhagic anemia; M06.9 Rheumatoid arthritis, unspecified; M79.7 Fibromyalgia; I95.9 Hypotension, unspecified; G25.81 Restless legs syndrome; E66.9 Obesity, unspecified; Z98.84 Bariatric surgery status; Z88.8 Allergy status to other drugs, medicaments and biological substances; Z79.82 Long term (current) use of aspirin; Z79.02 Long term (current) use of antithrombotics/antiplatelets; Z82.49 Family history of ischemic heart disease and other diseases of the circulatory system; Z90.710 Acquired absence of both cervix and uterus; Z86.73 Personal history of transient ischemic attack (TIA), and cerebral infarction without residual deficits; Z68.38 Body mass index [BMI] 38.0-38.9, adult
CPT/HCPCS: 36415; 80048; 83036; 83735; 85025; 86850; 86900; 86901; 99285; C9113; J2704; P9016; U0002; U0005

== ENCOUNTER 2021-03-22 09:05 | Day surgery (SDC) | payer MEDICARE, MEDICAID ==
[2021-03-22] MEDS ORDERED: Sodium Chloride 0.9% 20 ML ONE (09:16)
[2021-03-22] MEDS ORDERED: Acetaminophen 500 MG TAB PO PRN (09:16)
[2021-03-22] MEDS ORDERED: diphenhydrAMINE 25 MG CAP PO PRN (09:18)
[2021-03-22] MEDS ORDERED: Pramipexole Di-HCl 1 MG TAB PO SCH (11:45)
[2021-03-22 16:27] VITALS: BP 101/56; TEMP 97.7
== END 2021-03-22 16:30 | disposition home or self-care (01) ==
LOC: ONC/OP 09:05
PROVIDERS: ATTEND Internal Medicine Hematology & Oncology
PROC: 30233N1 Transfusion of Nonautologous Red Blood Cells into Peripheral Vein, Percutaneous Approach (ICD-10-PCS; principal; 2021-03-22)
DX: D64.9 Anemia, unspecified (principal); D69.6 Thrombocytopenia, unspecified; Z88.8 Allergy status to other drugs, medicaments and biological substances
CPT/HCPCS: 36415; 36430; 82728; 83540; 83550; 86850; 86900; 86901; P9016; Q0163

== ENCOUNTER 2021-04-22 18:24 | Emergency (ER) | payer MEDICARE, MEDICAID ==
[2021-04-22 19:28] LABS: #Eosinphils 0.1 thou/uL (0.0-0.7); #Lymphocytes 1.7 thou/uL (1.20-3.40); #Monocytes 0.4 thou/uL (0.11-0.59); #Neutrophils 3.3 thou/uL (1.40-6.50); %Basophils 0.5 % (0.0-1.0); %Eosinophils 1.6 % (0.0-10.0); %Lymphocytes 30.7 % (21.0-51.0); %Monocytes 6.6 % (0.0-10.0); %Neutrophils 60.6 % (42.0-75.0); Hemoglobin 12.9 g/dL (12.0-16.0); Mean Corpuscular HGB CONC 34.4 g/dL (32.0-36.0); Mean Corpuscular Hemoglobin 32.2 pg (27.0-31.0); Mean Corpuscular Volume 93.7 fL (78.0-98.0); Mean Platelet Volume 6.5 fL (7.4-10.4); Platelet Count 181 thou/uL (130-400); White Blood Cell (WBC) Count 5.4 thou/uL (4.8-10.8)
[2021-04-22 19:49] LABS: ALT (SGPT) 36 U/L (8-55); AST (SGOT) 28 U/L (5-34); Albumin 3.9 g/dL (3.5-5.0); Alkaline Phosphatase 87 U/L (40-110); Anion Gap 25 mmol/L (10-20); BUN (Urea Nitrogen) 14 mg/dL (9.8-20.1); Bilirubin, Total 0.2 mg/dL (0.2-1.2); Calc. Creatinine Clearance 0 mL/min (70-130); Calcium 9.2 mg/dL (7.8-10.44); Carbon Dioxide 14 mmol/L (22-29); Chloride 106 mmol/L (98-107); Globulin 2.5 g/dL (2.4-3.5); Glucose 96 mg/dL (70-105); Protein, Total 6.4 g/dL (6.0-8.3); Sodium 141 mmol/L (136-145)
[2021-04-22 22:57] LABS: Anion Gap 15 mmol/L (10-20); BUN (Urea Nitrogen) 13 mg/dL (9.8-20.1); Calc. Creatinine Clearance 0 mL/min (70-130); Calcium 8.9 mg/dL (7.8-10.44); Carbon Dioxide 23 mmol/L (22-29); Chloride 107 mmol/L (98-107); Glucose 97 mg/dL (70-105); Potassium 3.9 mmol/L (3.5-5.1); Sodium 141 mmol/L (136-145)
[2021-04-22 23:10] LABS: Bacteria/HPF None Seen HPF (None Seen); Bilirubin Negative (Negative); Blood, Urine Negative (Negative); Clarity Clear (Clear); Glucose, Urine (Dipstick) Normal (Negative); Ketone, Urine Negative (Negative); Leukocyte 25 Leu/uL (Negative); Nitrite Negative (Negative); Protein, Urine (Dipstick) Negative (Neg-Trace); RBC/HPF 0-3 HPF (0-3); Specific Gravity, Urine 1.022 (1.002-1.036); Squamous Epithelial 0-3 HPF (0-3); Urobilinogen Normal mg/dL (Less than 2); WBC/HPF 0-3 HPF (0-3)
[2021-04-22 23:15] LABS: Pregnancy Test - Urine (BHCG) Negative (Negative); Pregu Control Background? CLEAR/WHITE (CLR/WHITE); Pregu Control Bar Appear? YES (CONTROL BAR); Specific Gravity 1.022 (1.002-1.036)
== END 2021-04-22 23:50 | disposition home or self-care (01) ==
LOC: ERS 18:24
DX: R53.83 Other fatigue (principal); R53.1 Weakness; M79.10 Myalgia, unspecified site; Z86.73 Personal history of transient ischemic attack (TIA), and cerebral infarction without residual deficits; Z79.82 Long term (current) use of aspirin; Z79.899 Other long term (current) drug therapy
CPT/HCPCS: 36415; 80053; 81003; 81015; 81025; 82140; 84443; 85025; 93005

== ENCOUNTER 2021-06-23 12:51 | Outpatient (CLI) | payer MEDICARE, MEDICAID | END 2021-06-23 12:52 | disposition home or self-care (01) | LOC: BICMAMMO 12:51 | PROVIDERS: ATTEND Family Medicine | DX: Z12.31 Encounter for screening mammogram for malignant neoplasm of breast (principal) | CPT/HCPCS: 77063; 77067 ==

== ENCOUNTER 2022-04-15 21:59 | Observation (INO) | payer MEDICARE, MEDICAID ==
[2022-04-15 23:00] LABS: #Eosinphils 0.1 thou/uL (0.0-0.7); #Lymphocytes 1.9 thou/uL (1.20-3.40); #Monocytes 0.4 thou/uL (0.11-0.59); %Basophils 0.3 % (0.0-1.0); %Eosinophils 1.2 % (0.0-10.0); %Lymphocytes 35.6 % (21.0-51.0); %Monocytes 6.7 % (0.0-10.0); %Neutrophils 56.1 % (42.0-75.0); Hemoglobin 13.1 g/dL (12.0-16.0); Mean Corpuscular HGB CONC 34.1 g/dL (32.0-36.0); Mean Corpuscular Hemoglobin 32.8 pg (27.0-31.0); Mean Platelet Volume 5.6 fL (7.4-10.4); Platelet Count 255 thou/uL (130-400); White Blood Cell (WBC) Count 5.4 thou/uL (4.8-10.8)
[2022-04-15 23:20] LABS: ALT (SGPT) 27 U/L (8-55); AST (SGOT) 19 U/L (5-34); Albumin 3.6 g/dL (3.5-5.0); Alkaline Phosphatase 82 U/L (40-110); Anion Gap 10 mmol/L (10-20); BUN (Urea Nitrogen) 14 mg/dL (9.8-20.1); Bilirubin, Total 0.4 mg/dL (0.2-1.2); Calc. Creatinine Clearance 0 mL/min (70-130); Calcium 8.7 mg/dL (7.8-10.44); Carbon Dioxide 28 mmol/L (22-29); Chloride 106 mmol/L (98-107); Globulin 2.6 g/dL (2.4-3.5); Glucose 85 mg/dL (70-105); Lipase 46 U/L (8-78); Potassium 3.8 mmol/L (3.5-5.1); Protein, Total 6.2 g/dL (6.0-8.3); Sodium 140 mmol/L (136-145)
[2022-04-16] MEDS ORDERED: Ondansetron PF 4 MG/2 ML Vial IVP PRN (00:50)
[2022-04-16] MEDS ORDERED: Acetaminophen 325 MG TAB PO PRN (00:50)
[2022-04-16] MEDS ORDERED: Ondansetron ODT 4 MG TAB PO PRN (00:50)
[2022-04-16] MEDS ORDERED: Acetaminophen 650 MG Suppository PR PRN (00:50)
[2022-04-16] MEDS ORDERED: Nitroglycerin 0.4 MG TAB (25 Tab Bottle) SL PRN (00:53)
[2022-04-16] MEDS ORDERED: Aspirin Chewable 81 MG TAB PO SCH ×2 (01:00→09:00)
[2022-04-16 01:25] VITALS: BMI 30.8
[2022-04-16 01:27] LABS: Troponin I Less than 0.010 ng/mL (< 0.028)
[2022-04-16 05:00] LABS: #Eosinphils 0.1 thou/uL (0.0-0.7); #Monocytes 0.3 thou/uL (0.11-0.59); #Neutrophils 2.4 thou/uL (1.40-6.50); %Basophils 0.4 % (0.0-1.0); %Eosinophils 1.6 % (0.0-10.0); %Monocytes 6.8 % (0.0-10.0); %Neutrophils 50.2 % (42.0-75.0); Hemoglobin 12.8 g/dL (12.0-16.0); Mean Corpuscular HGB CONC 33.3 g/dL (32.0-36.0); Mean Corpuscular Volume 96.1 fL (78.0-98.0); Mean Platelet Volume 5.4 fL (7.4-10.4); Platelet Count 248 thou/uL (130-400); RBC Distribution Width 12.1 % (11.5-14.5); White Blood Cell (WBC) Count 4.9 thou/uL (4.8-10.8)
[2022-04-16 05:23] LABS: Anion Gap 13 mmol/L (10-20); BUN (Urea Nitrogen) 11 mg/dL (9.8-20.1); Calc. Creatinine Clearance 141 mL/min (70-130); Calcium 8.6 mg/dL (7.8-10.44); Carbon Dioxide 26 mmol/L (22-29); Chloride 108 mmol/L (98-107); Glucose 90 mg/dL (70-105); Potassium 3.7 mmol/L (3.5-5.1); Sodium 143 mmol/L (136-145)
[2022-04-16 05:32] LABS: Troponin I Less than 0.010 ng/mL (< 0.028)
[2022-04-16 07:45] VITALS: BP 115/78; TEMP 98.3
[2022-04-16] MEDS ORDERED: Enoxaparin Sodium 40 MG/0.4 ML SYRINGE SC SCH (09:00)
[2022-04-16] MEDS ORDERED: Pramipexole Di-HCl 0.25 MG TAB PO SCH (09:00)
[2022-04-16] MEDS ORDERED: Gabapentin 400 MG CAP PO SCH (09:00)
[2022-04-16] MEDS ORDERED: Pramipexole Di-HCl 1 MG TAB PO SCH (12:00)
[2022-04-16] MEDS ORDERED: clonazePAM 1 MG TAB PO SCH (21:00)
== END 2022-04-16 11:25 | disposition home or self-care (01) ==
LOC: ERS 21:59 → 2SW 04-16 00:03
PROVIDERS: ADMIT Internal Medicine; ATTEND Internal Medicine
DX: R07.89 Other chest pain (principal); M79.602 Pain in left arm; R51.9 Headache, unspecified; H57.11 Ocular pain, right eye; H34.9 Unspecified retinal vascular occlusion; M06.9 Rheumatoid arthritis, unspecified; Q21.1 Atrial septal defect; M79.7 Fibromyalgia; G47.30 Sleep apnea, unspecified; Z86.73 Personal history of transient ischemic attack (TIA), and cerebral infarction without residual deficits; Z79.82 Long term (current) use of aspirin; Z79.899 Other long term (current) drug therapy; Z88.8 Allergy status to other drugs, medicaments and biological substances; Z20.822 Contact with and (suspected) exposure to COVID-19
CPT/HCPCS: 71045; 80048; 80053; 83690; 84484 ×3; 85025 ×2; 93005; 99285; G0378 ×2; U0003; U0005; 36415; J1650

== ENCOUNTER 2022-05-17 11:01 | Outpatient (CLI) | payer MEDICARE, MEDICAID | END 2022-05-17 11:02 | disposition home or self-care (01) | LOC: MRI 11:01 | PROVIDERS: ATTEND Psychiatry & Neurology Neurology | DX: M54.16 Radiculopathy, lumbar region (principal); G25.81 Restless legs syndrome; M16.12 Unilateral primary osteoarthritis, left hip; M48.061 Spinal stenosis, lumbar region without neurogenic claudication; M48.07 Spinal stenosis, lumbosacral region; D50.0 Iron deficiency anemia secondary to blood loss (chronic); E66.01 Morbid (severe) obesity due to excess calories; E55.9 Vitamin D deficiency, unspecified | CPT/HCPCS: 72148; 82728; 83540; 83550; 85025 ==

== ENCOUNTER 2023-02-18 11:15 | Outpatient (CLI) | payer MEDICARE, MEDICAID | END 2023-02-18 11:16 | disposition home or self-care (01) | LOC: BICMAMMO 11:15 | PROVIDERS: ATTEND Family Medicine | DX: Z12.31 Encounter for screening mammogram for malignant neoplasm of breast (principal) | CPT/HCPCS: 77063; 77067 ==

== ENCOUNTER 2023-05-20 07:13 | Emergency (ER) | payer MEDICARE, MEDICAID ==
[2023-05-20] MEDS ORDERED: Ketorolac Tromethamine 30 MG/ML VIAL ONE (08:34)
[2023-05-20] MEDS ORDERED: Dexamethasone 10 MG/ML VIAL ONE (08:34)
[2023-05-20] MEDS ORDERED: Diazepam 10 MG/2 ML SYRINGE ONE (10:23)
== END 2023-05-20 10:46 | disposition home or self-care (01) ==
LOC: ERS 07:13
DX: M46.1 Sacroiliitis, not elsewhere classified (principal); M79.604 Pain in right leg
CPT/HCPCS: 96372; J1100; J1885; J3360

== ENCOUNTER 2024-04-20 12:35 | Emergency (ER) | payer MEDICARE, MEDICAID ==
[2024-04-20] MEDS ORDERED: Iopamidol-370 76% 500 ML MDV (1 ML CHARGE) ONE (13:02)
[2024-04-20 13:07] LABS: #Basophils Less than 0.03 10x3/uL (0.0-0.2); %Basophils 0.3 % (0.0-1.0); %Eosinophils 0.8 % (0.0-10.0); %Lymphocytes 30.6 % (21.0-51.0); %Monocytes 12.6 % (0.0-10.0); %Neutrophils 55.4 % (42.0-75.0); Hematocrit 45.8 % (36.0-47.0); Hemoglobin 15.2 g/dL (12.0-16.0); Mean Corpuscular HGB CONC 33.2 g/dL (32.0-36.0); Mean Corpuscular Hemoglobin 29.4 pg (27.0-31.0); Mean Corpuscular Volume 88.6 fL (78.0-98.0); Platelet Count 204 10x3/uL (130-400); RBC Distribution Width 13.5 % (11.5-14.5); Red Blood Cell (RBC) Count 5.17 mill/uL (4.20-5.40)
[2024-04-20 13:26] LABS: ALT (SGPT) 24 U/L (8-55); AST (SGOT) 22 U/L (5-34); Albumin 3.9 g/dL (3.5-5.0); Alkaline Phosphatase 76 U/L (40-110); Anion Gap 15 mmol/L (10-20); BUN (Urea Nitrogen) 17 mg/dL (9.8-20.1); Bilirubin, Total 0.4 mg/dL (0.2-1.2); Calc. Creatinine Clearance 0 mL/min (70-130); Calcium 9.7 mg/dL (7.8-10.44); Carbon Dioxide 20 mmol/L (22-29); Chloride 105 mmol/L (98-107); Estimated GFR 89; Glucose 108 mg/dL (70-105); Lipase 27 U/L (8-78); Potassium 3.9 mmol/L (3.5-5.1); Protein, Total 7.9 g/dL (6.0-8.3); Sodium 136 mmol/L (136-145)
[2024-04-20 16:23] LABS: Bacteria/HPF None Seen HPF (None Seen); Bilirubin Negative (Negative); Blood, Urine 2+ (Negative); CAUTI Indications for Culture Acute Hematuria; Clarity Clear (Clear); Glucose, Urine (Dipstick) Normal (Negative); Ketone, Urine Negative (Negative); Leukocyte Negative Leu/uL (Negative); Nitrite Negative (Negative); Protein, Urine (Dipstick) 20 mg/dL (Neg-Trace); Squamous Epithelial 0-3 HPF (0-3); Urobilinogen Normal mg/dL (Less than 2); pH, Urine 6.5 (5.0-9.0)
[2024-04-20 16:29] LABS: Specific Gravity, Urine Greater than 1.060 (1.002-1.036)
[2024-04-20 16:30] LABS: Urine Culture Reflex No No
[2024-04-20] MEDS ORDERED: Famotidine/PF 20 mg/2ml Vial ONE (17:05)
[2024-04-20] MEDS ORDERED: Dicyclomine 20 MG/2 ML VIAL ONE (17:05)
[2024-04-20] MEDS ORDERED: Pantoprazole 40 MG VIAL ONE (17:07)
== END 2024-04-20 18:12 | disposition home or self-care (01) ==
LOC: ERS 12:35
DX: K52.9 Noninfective gastroenteritis and colitis, unspecified (principal); G62.9 Polyneuropathy, unspecified; Z86.73 Personal history of transient ischemic attack (TIA), and cerebral infarction without residual deficits; Z79.82 Long term (current) use of aspirin; Z79.899 Other long term (current) drug therapy; Z55.6 Problems related to health literacy
CPT/HCPCS: 74177; 80053; 81001; 83690; 85025; C9113; 36415; 96361; 96372; 96374; Q9967; S0028

== ENCOUNTER 2024-06-16 10:57 | Outpatient (CLI) | payer MEDICARE, MEDICAID | END 2024-06-16 10:58 | disposition home or self-care (01) | LOC: BICMAMMO 10:57 | PROVIDERS: ATTEND Nurse Practitioner Family | DX: Z12.31 Encounter for screening mammogram for malignant neoplasm of breast (principal) | CPT/HCPCS: 77063; 77067 ==

== ENCOUNTER 2025-06-03 08:50 | Outpatient (CLI) | payer MEDICARE, MEDICAID | END 2025-06-03 08:51 | disposition home or self-care (01) | LOC: BICMAMMO 08:50 | PROVIDERS: ATTEND Family Medicine | DX: Z13.820 Encounter for screening for osteoporosis (principal); N95.1 Menopausal and female climacteric states; M85.851 Other specified disorders of bone density and structure, right thigh; M85.852 Other specified disorders of bone density and structure, left thigh | CPT/HCPCS: 77080 ==

== ENCOUNTER 2025-10-04 12:05 | Inpatient (IN) | payer MEDICARE, MEDICAID ==
[~2025-10-04 12:05] MED LIST changes: -Iopamidol-370 76% 500 ML 1 ML ONE; +Iopamidol-370 76% 500 ML MDV (1 ML CHARGE) ONE
[2025-10-04 12:50] LABS: #Basophils Less than 0.03 10x3/uL (0.0-0.2); #Eosinophils 0.07 10x3/uL (0.0-0.7); #Monocytes 0.32 10x3/uL (0.11-0.59); #Neutrophils 8.55 10x3/uL (1.40-6.50); %Basophils 0.2 % (0.0-1.0); %Eosinophils 0.7 % (0.0-10.0); %Lymphocytes 9.5 % (21.0-51.0); %Monocytes 3.2 % (0.0-10.0); %Neutrophils 86.0 % (42.0-75.0); Hematocrit 38.5 % (36.0-47.0); Hemoglobin 12.0 g/dL (12.0-16.0); Mean Corpuscular Hemoglobin 28.0 pg (27.0-31.0); Mean Corpuscular Volume 90.0 fL (78.0-98.0); Platelet Count 179 10x3/uL (130-400); Red Blood Cell (RBC) Count 4.28 mill/uL (4.20-5.40); White Blood Cell (WBC) Count 9.94 10x3/uL (4.8-10.8)
[2025-10-04 13:08] LABS: ALT (SGPT) 21 U/L (Less than 34); AST (SGOT) 22 U/L (11-34); Albumin 3.9 g/dL (3.1-4.5); Alkaline Phosphatase 91 U/L (40-110); Anion Gap 15 mmol/L (10-20); BUN (Urea Nitrogen) 25 mg/dL (9.8-20.1); Bilirubin, Total 0.7 mg/dL (0.3-1.2); Calc. Creatinine Clearance 0 mL/min (70-130); Calcium 8.8 mg/dL (7.8-10.44); Carbon Dioxide 25 mmol/L (22-29); Chloride 103 mmol/L (98-107); Globulin 3.0 g/dL (2.4-3.5); Glucose 134 mg/dL (70-105); Potassium 3.8 mmol/L (3.5-5.1); Sodium 139 mmol/L (136-145)
[2025-10-04] MEDS ORDERED: Acetaminophen 500 MG TAB ONE (13:15)
[2025-10-04 13:48] LABS: Glucose, Urine (Dipstick) Negative (Negative); Leukocyte Small (Negative); Protein, Urine (Dipstick) Trace mg/dL (Neg-Trace); Specific Gravity, Urine 1.025 (1.005-1.030)
[2025-10-04 13:50] LABS: Bacteria/HPF 2+ HPF (None Seen); CAUTI Indications for Culture Fever or rigors; RBC/HPF 0-3 HPF (0-3); WBC/HPF 21-50 HPF (0-3)
[2025-10-04 13:55] LABS: Urine Culture Reflex Yes Yes
[2025-10-04] MEDS ORDERED: Melatonin 3 MG TAB PO PRN (19:02)
[2025-10-04] MEDS ORDERED: cefTRIAXone (ROCEPHIN) 2 GM VIAL ONE (19:41)
[2025-10-04] MEDS: cefTRIAXone\\ROCEPHIN 2 GM in Sodium Chloride 0.9% 100 ML IVPB SCH (19:53)
[2025-10-04] MEDS: VANCOMYCIN 1.75 GM/350 ML Premix BAG IVPB SCH (20:02)
[2025-10-04] MEDS ORDERED: Gabapentin 300 MG CAP ONE (20:27)
[2025-10-04] MEDS: Gabapentin 300 MG CAP PO SCH (20:29)
[2025-10-04 21:36] VITALS: BMI 34.0
[2025-10-05] MEDS: oxyCODONE 5 MG TAB PO PRN (02:53)
[2025-10-05 05:45] LABS: #Basophils Less than 0.03 10x3/uL (0.0-0.2); #Eosinophils 0.15 10x3/uL (0.0-0.7); #Monocytes 0.38 10x3/uL (0.11-0.59); #Neutrophils 7.92 10x3/uL (1.40-6.50); %Basophils 0.2 % (0.0-1.0); %Eosinophils 1.5 % (0.0-10.0); %Lymphocytes 13.5 % (21.0-51.0); %Monocytes 3.9 % (0.0-10.0); %Neutrophils 80.7 % (42.0-75.0); Hematocrit 31.2 % (36.0-47.0); Hemoglobin 9.7 g/dL (12.0-16.0); Mean Corpuscular Hemoglobin 28.0 pg (27.0-31.0); Mean Corpuscular Volume 90.2 fL (78.0-98.0); Platelet Count 172 10x3/uL (130-400); Red Blood Cell (RBC) Count 3.46 mill/uL (4.20-5.40); White Blood Cell (WBC) Count 9.82 10x3/uL (4.8-10.8)
[2025-10-05 06:03] LABS: Anion Gap 10 mmol/L (10-20); BUN (Urea Nitrogen) 10 mg/dL (9.8-20.1); Calc. Creatinine Clearance 145 mL/min (70-130); Calcium 8.3 mg/dL (7.8-10.44); Carbon Dioxide 24 mmol/L (22-29); Chloride 112 mmol/L (98-107); Glucose 108 mg/dL (70-105); Magnesium 1.8 mg/dL (1.6-2.6); Potassium 3.9 mmol/L (3.5-5.1); Sodium 142 mmol/L (136-145)
[2025-10-05] MEDS: Enoxaparin 40 MG (0.4 mL) SYRINGE SC SCH (08:38)
[2025-10-05] MEDS: Magnesium 2 GM/50 ML(in water) 2 GM in Premix 1 BAG IVPB SCH (08:41)
[2025-10-05] MEDS: Pantoprazole 40 MG DR.TAB PO SCH (08:45)
[2025-10-05] MEDS: Aspirin 81 mg Enteric Coated Tablet PO SCH (10:05)
[2025-10-05] MEDS: NEUPRO 6 MG/24 HR TOP SCH (15:30)
[2025-10-05] MEDS: Ondansetron PF 4 MG/2 ML Vial IVP PRN (20:47)
[2025-10-05] MEDS: GABAPENTIN 600 MG TAB PO SCH (20:49)
[2025-10-06 08:26] LABS: #Basophils Less than 0.03 10x3/uL (0.0-0.2); #Eosinophils 0.21 10x3/uL (0.0-0.7); #Monocytes 0.26 10x3/uL (0.11-0.59); #Neutrophils 2.43 10x3/uL (1.40-6.50); %Basophils 0.3 % (0.0-1.0); %Eosinophils 5.3 % (0.0-10.0); %Lymphocytes 26.4 % (21.0-51.0); %Monocytes 6.5 % (0.0-10.0); %Neutrophils 61.2 % (42.0-75.0); Hematocrit 29.8 % (36.0-47.0); Hemoglobin 9.3 g/dL (12.0-16.0); Mean Corpuscular Hemoglobin 27.8 pg (27.0-31.0); Mean Corpuscular Volume 89.2 fL (78.0-98.0); Platelet Count 158 10x3/uL (130-400); Red Blood Cell (RBC) Count 3.34 mill/uL (4.20-5.40); White Blood Cell (WBC) Count 3.97 10x3/uL (4.8-10.8)
[2025-10-06 08:51] LABS: Anion Gap 6 mmol/L (10-20); BUN (Urea Nitrogen) 6 mg/dL (9.8-20.1); Calc. Creatinine Clearance 163 mL/min (70-130); Calcium 8.4 mg/dL (7.8-10.44); Carbon Dioxide 26 mmol/L (22-29); Chloride 110 mmol/L (98-107); Glucose 96 mg/dL (70-105); Potassium 3.6 mmol/L (3.5-5.1); Sodium 138 mmol/L (136-145)
[2025-10-06] MEDS: Acetaminophen 325 MG TAB PO PRN (08:56)
[2025-10-06] MEDS: GABAPENTIN 600 MG TAB PO SCH (13:00)
[2025-10-07 06:58] LABS: #Basophils Less than 0.03 10x3/uL (0.0-0.2); #Eosinophils 0.20 10x3/uL (0.0-0.7); #Monocytes 0.24 10x3/uL (0.11-0.59); #Neutrophils 3.11 10x3/uL (1.40-6.50); %Basophils 0.2 % (0.0-1.0); %Eosinophils 4.3 % (0.0-10.0); %Lymphocytes 22.2 % (21.0-51.0); %Monocytes 5.2 % (0.0-10.0); %Neutrophils 67.7 % (42.0-75.0); Hematocrit 33.3 % (36.0-47.0); Hemoglobin 10.4 g/dL (12.0-16.0); Mean Corpuscular Hemoglobin 27.9 pg (27.0-31.0); Mean Corpuscular Volume 89.3 fL (78.0-98.0); Platelet Count 195 10x3/uL (130-400); Red Blood Cell (RBC) Count 3.73 mill/uL (4.20-5.40); White Blood Cell (WBC) Count 4.60 10x3/uL (4.8-10.8)
[2025-10-07 07:05] LABS: Anion Gap 14 mmol/L (10-20); BUN (Urea Nitrogen) 6 mg/dL (9.8-20.1); Calc. Creatinine Clearance 154 mL/min (70-130); Calcium 8.9 mg/dL (7.8-10.44); Carbon Dioxide 25 mmol/L (22-29); Chloride 107 mmol/L (98-107); Glucose 91 mg/dL (70-105); Potassium 3.5 mmol/L (3.5-5.1); Sodium 142 mmol/L (136-145)
[2025-10-07 11:44] VITALS: BP 126/90; TEMP 98.1
== END 2025-10-07 12:48 | disposition home or self-care (01) | DRG 871 ==
LOC: ERS 12:05 → ERHOLD 16:22 → T4-A 21:01
PROVIDERS: ADMIT Internal Medicine; ATTEND Hospitalist
DX: A41.51 Sepsis due to Escherichia coli [E. coli] (principal); J69.0 Pneumonitis due to inhalation of food and vomit; N17.9 Acute kidney failure, unspecified; N10 Acute pyelonephritis; Z88.8 Allergy status to other drugs, medicaments and biological substances; G25.81 Restless legs syndrome; G47.33 Obstructive sleep apnea (adult) (pediatric); Z98.890 Other specified postprocedural states; Z86.73 Personal history of transient ischemic attack (TIA), and cerebral infarction without residual deficits; M06.9 Rheumatoid arthritis, unspecified; G89.4 Chronic pain syndrome; E86.0 Dehydration; Z79.899 Other long term (current) drug therapy; Z79.82 Long term (current) use of aspirin
CPT/HCPCS: 36415; 71045; 71275; 74177; 80048; 80053; 81001; 83605; 83690; 83735; 83880; 84484; 85025; 87040; 87077; 87086; 87186; 87428; 93005; 94760; 96365; 96366; 96367; J0696; J1650; J2405; J2543; J3375; J3475; J7030; Q9967